=== PATIENT | female | born 1960 | race Caucasian/White ===

== ENCOUNTER 2016-11-01 21:50 | Emergency (ER) | payer BC ==
[~2016-11-01] VITALS: Ht 167.6 cm; Wt 59.0 kg
[2016-11-01] MEDS ORDERED: TDAP [DIPH/PERTUSSIS/TET] 0.5 ML VIAL IM ONE ×2 (22:29→22:30)
[2016-11-02 00:37] VITALS: BP 148/95
== END 2016-11-02 00:38 | disposition home or self-care (01) ==
LOC: ER 21:54
DX: S61.210A Laceration without foreign body of right index finger without damage to nail, initial encounter (principal); I10 Essential (primary) hypertension; Z95.5 Presence of coronary angioplasty implant and graft; Z98.82 Breast implant status; F17.200 Nicotine dependence, unspecified, uncomplicated; W54.0XXA Bitten by dog, initial encounter; Y93.89 Activity, other specified; Y92.89 Other specified places as the place of occurrence of the external cause; Y99.8 Other external cause status
CPT/HCPCS: 12001; 73130; 90471; 90715; 99284; A4217; A4606; A6402; Z7610

== ENCOUNTER 2022-04-05 11:33 | Inpatient (IN) | payer BC, OTHER ==
[2022-04-05] VITALS (8 sets, daily range): BP systolic 90–124; BP diastolic 36–62
[~2022-04-05] VITALS: Ht 165.1 cm; Wt 79.8 kg
[2022-04-05] MEDS ORDERED: IV NS 0.9% 1,000 ML IV ONE (12:00)
--- NOTE | 2022-04-05 12:00 | NUR ---
RECIVED PT CAME BY DARIN c/o genraized jandice and weekneess awake not fallow any comend
--- NOTE | 2022-04-05 12:22 | NUR ---
CARDIOLIGIST DR. ROBINSON ROSEN [phone]
--- NOTE | 2022-04-05 12:30 | NUR ---
to ct scan of head
[2022-04-05] MEDS ORDERED: CITA20TA16 PO (12:33)
[2022-04-05] MEDS ORDERED: OMEP20CA15 PO (12:33)
[2022-04-05] MEDS ORDERED: LEVO100T9 PO (12:33)
[2022-04-05] MEDS ORDERED: ALPR2TAB7 PO (12:33)
[2022-04-05] MEDS ORDERED: METO-357 PO (12:33)
[2022-04-05] MEDS ORDERED: ATOR40TA PO (12:33)
[2022-04-05 12:56] LABS: EOSINOPHILS % (AUTO) 0.4 % (0.0-6.0); LYMPHOCYTES # (AUTO) 0.6 K/uL (0.8-4.8); LYMPHOCYTES % (AUTO) 9.4 % (20.0-44.0); MEAN CORPUSCULAR HGB CONC 35 g/dl (31.0-36.0); MEAN CORPUSCULAR VOLUME 99 fL (82-100); MONOCYTES # (AUTO) 0.3 K/uL (0.1-1.30); MONOCYTES % (AUTO) 4.5 % (2.0-12.0); NEUTROPHILS % (AUTO) 85.7 % (43.0-81.0); PLATELET COUNT (AUTO) 106 K/uL (150-450); WHITE BLOOD COUNT (AUTO) 5.9 K/uL (4.3-11.0)
[2022-04-05 12:57] LABS: RED BLOOD CELL COUNT(AUTO) 1.28 MIL/uL (4.0-5.2)
[2022-04-05 13:00] LABS: HEMATOCRIT 13 % (33-45); HEMOGLOBIN 4.4 g/dL (11.5-14.8)
[2022-04-05 13:08] LABS: SERUM AMMONIA 33 umol/L (11-32)
[2022-04-05 13:14] LABS: ALANINE AMINOTRANSFERASE 52 U/L (12-78); ALBUMIN 2.1 g/dL (3.4-5.0); ALKALINE PHOSPHATASE 123 U/L (46-116); ASPARTATE AMINOTRANSFERASE 267 U/L (15-37); BILIRUBIN,DIRECT 5.1 mg/dL (0.0-0.2); BILIRUBIN,TOTAL 6.7 mg/dL (0.2-1.0); CALCIUM, SERUM 8.1 mg/dL (8.5-10.1); TOTAL PROTEIN, SERUM 6.2 g/dL (6.4-8.2); UREA NITROGEN, BLOOD 26 mg/dL (7-18)
[2022-04-05] MEDS ORDERED: POTASSIUM CHLORIDE 20 MEQ TAB.PRT.SR PO ONE ×2 (13:30→13:46)
[2022-04-05] MEDS ORDERED: POTASSIUM CHLORIDE 10 MEQ/50 ML PREMIXED IVPB FOR PERIPHERAL LINE IV ONE (13:30)
[2022-04-05] MEDS ORDERED: POTASSIUM CL. PREMIX PERIPHER. 50 ML ONE (13:31)
[2022-04-05 13:46] LABS: POTASSIUM 2.2 mmol/L (3.5-5.1); SODIUM SERUM 135 mmol/L (136-145)
[2022-04-05 13:47] LABS: ALCOHOL, BLOOD < 3 mg/dL (0-0); CARBON DIOXIDE 35 mmol/L (21-32); CHLORIDE 87 mmol/L (98-107); CREATININE 0.9 mg/dL (0.6-1.3); GLUCOSE 129 mg/dL (74-106)
--- NOTE | 2022-04-05 14:19 | NUR ---
pal trevizo done and sent to lab
--- NOTE | 2022-04-05 14:20 | NUR ---
to ct scan of abdomin
[2022-04-05 14:52] LABS: BAND % (MANUAL) 9 % (0.0-5.0); LYMPHOCYTES % (MANUAL) 9 % (16-48); MONOCYTES % (MANUAL) 2 % (0-11.0); NEUTROPHILS % (MANUAL) 80 (42-76)
--- NOTE | 2022-04-05 15:09 | NUR ---
GLENN AUGUSTE (MOTHER) [phone]
[2022-04-05] MEDS ORDERED: MORPHINE SULFATE INJ 2 MG/ML DISP.SYRIN IV PRN (15:30)
[2022-04-05] MEDS ORDERED: ONDANSETRON HCL/PF 4 MG/2 ML VIAL IVP PRN (15:30)
[2022-04-05] MEDS ORDERED: Z GUARD REMEDY 4 OZ OINT TP PRN (15:30)
--- NOTE | 2022-04-05 15:54 | NUR ---
ROOM 112-1
--- NOTE | 2022-04-05 16:09 | NUR ---
REPORT GIVEN TO NURSE MCKEON FOR MORENITA
[2022-04-05 16:30] LABS: COLOR,URINE DARK YELLOW (YELLOW); PROTEIN,URINE TRACE mg/dl (NEGATIVE); UGLUCOSE NEGATIVE (NEGATIVE)
[2022-04-05 16:31] LABS: BILIRUBIN,URINE LARGE (NEGATIVE); LEUKOCYTE ESTERASE ,URINE TRACE (NEGATIVE); NITRITE, URINE NEGATIVE (NEGATIVE)
--- NOTE | 2022-04-05 16:45 | NUR ---
[facility] RN NOTE PATIENT RECEIVED FROM ER WITH DX COLITIS AND ANEMIA UNDER CARE KODI DNP, ALERT WITH CONFUSION , ON TELE MONITOR ST 105 AT THIS TIME, LT FA HL INTACT AND FLUSHED WELL BED IN LOWEST AND LOCKED POSITION , ON RA NO SOB NOTED AT THIS TIME, BELONGING CHECKED BY SHASHANK PAYNE, HOSPITAL ORIENTATION DONE ,VS TAKEN WILL CONT TO MONITOR CLOSELY
[2022-04-05 16:53] LABS: RBC,URINE 0-2 /HPF (0-2)
[2022-04-05 16:54] LABS: BACTERIA,URINE Many /HPF (None Seen); SQUAMOUS EPITHELIAL CELL,UR Few /HPF (None Seen)
[2022-04-05] MEDS ORDERED: PIPERACILLIN /TAZOBACTAM 3.375 G in IV D5W 50 ML IV ONE (17:00)
[2022-04-05] MEDS: IV NS 0.9% 1,000 ML IV PRN (17:05)
--- NOTE | 2022-04-05 18:33 | NUR ---
[facility] RN NOTE 1 UNIT PRBC STARTED, NO ADVERSE REACTION NOTED, NOT IN DISTRESS
--- NOTE | 2022-04-05 19:30 | NUR ---
RECEIVED PATIENT FROM ONUR BAUTISTA FOR CONTINUATION OF CARE, PATIENT A/O TO SELF, BLOOD TRANSFUSION ONGOING AT SI TIME, NO S/S OF ANY ADVERSE REACTION NOTED, WILL CONTINUE TO MONITOR CLOSELY.
[2022-04-05] MEDS: PANTOPRAZOLE 40 MG VIAL IV SCH (21:10)
[2022-04-05 23:49] LABS: HEMOGLOBIN 6.1 g/dL (11.5-14.8)
[2022-04-06] VITALS (11 sets, daily range): BP systolic 82–133; BP diastolic 46–69
--- NOTE | 2022-04-06 00:15 | NUR ---
RECEIVED RESULTS FOR THE H&H AT THIS TIME AND REPORT TO DR DAIANA SANDOVAL, 6.10/19, AND REPLIED WITH ORDERS TO TRANSFUSE 1 UNIT PRBC AND 1 UNIT FFP, ORDERS NOTED AND CARRIED OUT.
[2022-04-06] MEDS: PIPERACILLIN /TAZOBACTAM 3.375 G in IV D5W 100 ML IV SCH ×3 (01:46→16:33)
--- NOTE | 2022-04-06 04:22 | NUR ---
BLOOD TRANSFUSION DONE, PATIENT WITH BODY TEMP A THIS TIME 101.0, INFORMED MD PATIENT DID NOT HAVE FEVER EARLIER, AND PER ADMITTING DR AVOID TO GIVE TYLENOL, AND PER MD TO GIVE TYLENOL 650 PO ONCE, ASKED MD IF MAY BE AN ALLERGIC REACTION TO BLOOD TRANSFUSION, AND HE ANSWERED "NO' AND ORDERED BENADRYL 50MG IVP JUST IN CASE, ORDERS NOTED AND CARRIED OUT.
[2022-04-06] MEDS ORDERED: diphenhydrAMINE HCL 50 MG/ML VIAL IV ONE (04:30)
[2022-04-06] MEDS: ACETAMINOPHEN 325 MG TABLET PO PRN (04:36)
--- NOTE | 2022-04-06 06:24 | NUR ---
RN CLOSING NOTE, PATIENT TIN BED A/O X2, WITH INTERMITTENT CONFUSION, AT RA, NO SOB/ACUTE DISTRESS NOTED, S/P 2 UNITS OF PRBC, AWAITING FOR LABS RESULTS FOR HG LEVEL, LAST 6.1 AND THE LAST UNIT OF BLOOD GIVEN AFTER THAT, STILL ONE UNIT OF FFP STILL PENDING, WILL ENDORSE TO ONCOMING NURSE TO FOLLOW UP WITH LAB, PATIENT WITH FEVER THIS MORNING, TYLENOL GIVEN ONCE, CONTINUE ON IVF, OTHERWISE NO SIGNIFICANT CHANGE IN CONDITION DURING THE NIGHT, BED LOCKED AN DIN LOWEST POSITION, S/R OF BED X2 UP, CALL LIGHT W/I REACH, WILL ENDORSE CONTINUITY OF CARE TO ONCOMING NURSE.
[2022-04-06 06:39] LABS: BASOPHILS % (AUTO) 0.1 % (0.0-2.0); EOSINOPHILS % (AUTO) 0.2 % (0.0-6.0); HEMATOCRIT 21 % (33-45); HEMOGLOBIN 7.2 g/dL (11.5-14.8); LYMPHOCYTES # (AUTO) 0.5 K/uL (0.8-4.8); LYMPHOCYTES % (AUTO) 7.8 % (20.0-44.0); MEAN CORPUSCULAR HGB CONC 35 g/dl (31.0-36.0); MEAN CORPUSCULAR VOLUME 96 fL (82-100); MONOCYTES # (AUTO) 0.2 K/uL (0.1-1.30); MONOCYTES % (AUTO) 3.8 % (2.0-12.0); NEUTROPHILS # (AUTO) 5.4 K/uL (1.8-8.9); NEUTROPHILS % (AUTO) 88.1 % (43.0-81.0); PLATELET COUNT (AUTO) 81 K/uL (150-450); WHITE BLOOD COUNT (AUTO) 6.1 K/uL (4.3-11.0)
--- NOTE | 2022-04-06 07:38 | NUR ---
RN OPENING NOTE, PATIENT IN BED A/O X2, WITH INTERMITTENT CONFUSION, AT RA, NO SOB/ACUTE DISTRESS NOTED, S/P 2 UNITS OF PRBC, AWAITING FOR LABS RESULTS FOR HG LEVEL,ONE UNIT OF FFP STILL PENDING, IV ACCESS ON ROB MIDLINE AND L FA 20G RUNNING NACL 0.9% AT 75MLS HR. SAFETY MEASURES IN PLACE BED LOCKED IN THE LOWEST POSITION, S/R OF BED X2 UP, CALL LIGHT W/I REACH.
[2022-04-06 08:09] LABS: CALCIUM, SERUM 7.9 mg/dL (8.5-10.1); CREATININE 1.1 mg/dL (0.6-1.3); MAGNESIUM 1.5 mg/dL (1.8-2.4)
[2022-04-06] MEDS: PANTOPRAZOLE 40 MG VIAL IV SCH ×2 (08:24→22:17)
[2022-04-06 08:25] LABS: THYROID STIMULATING HORMONE 12.93 uIU/mL (0.358-3.74)
[2022-04-06] MEDS: CITALOPRAM HYDROBROMIDE 20 MG TABLET PO SCH (08:25)
[2022-04-06] MEDS: LEVOTHYROXINE SODIUM 100 MCG TABLET PO SCH (08:25)
[2022-04-06] MEDS: METOPROLOL SUCCINATE 50 MG TAB.SR.24H PO SCH (08:26)
[2022-04-06 08:39] LABS: POTASSIUM 2.6 mmol/L (3.5-5.1)
[2022-04-06 09:30] LABS: BAND % (MANUAL) 1 % (0.0-5.0); LYMPHOCYTES % (MANUAL) 6 % (16-48); MONOCYTES % (MANUAL) 4 % (0-11.0); NEUTROPHILS % (MANUAL) 89 (42-76)
--- NOTE | 2022-04-06 10:00 | NUR ---
RN NOTE INFORMED PROVIDER KODI WILKINS REGARDING PATIENT CRITICAL POTASSIUM LEVEL, NO FURTHER ACTION GIVEN.
[2022-04-06] MEDS ORDERED: PHYTONADIONE INJ 10 MG/1 ML AMPUL SQ SCH (10:30)
--- NOTE | 2022-04-06 10:55 | NUR ---
WOUND CARE CONSULT: PT HAVING PROCEDURE AT THIS TIME. REVIEWED CHART, NURSING DOCUMENTATION AND PHOTOS WHICH INDICATE LEFT NECK AND SHOULDER OPEN BLISTERS, PRESENT ON ADMISSION. DR DANIEL NOTIFIED OF SURGICAL CONSULT REQUEST. DISCUSSED SKIN PROTECTION WITH NURSING STAFF. IN AGREEMENT WITH PLAN OF CARE.
[2022-04-06 12:35] LABS: ALBUMIN 2.1 g/dL (3.4-5.0); BILIRUBIN,DIRECT 5.3 mg/dL (0.0-0.2); BILIRUBIN,TOTAL 7.4 mg/dL (0.2-1.0); TOTAL PROTEIN, SERUM 6.1 g/dL (6.4-8.2)
[2022-04-06] MEDS: Magnesium 1GM/D5W 100ML PREMIX 100 ML IV SCH ×2 (13:45→15:01)
--- NOTE | 2022-04-06 15:44 | NUR ---
SS received consult for open blisters on left neck and shoulder, lives alone, and ETOH. SS attempted to interview pt. but she is alert and oriented x2, tend to be confused. SW made an APS for self-neglect. APS Intake #[id number]
[2022-04-06] MEDS ORDERED: Magnesium 1GM/D5W 100ML PREMIX 100 ML IV SCH (16:30)
[2022-04-06] MEDS: IV NS 0.9% 1,000 ML IV PRN (16:32)
[2022-04-06] MEDS: POTASSIUM CL. PREMIX PERIPHER. 50 ML IV SCH ×6 (16:43→23:14)
[2022-04-06] MEDS ORDERED: Sodium Phosphate 15 MMOL in IV NS 0.9% 245 ML IV SCH ×3 (17:00→22:00)
[2022-04-06 18:12] LABS: OCCULT BLOOD STOOL POSITIVE (NEGATIVE)
--- NOTE | 2022-04-06 18:56 | NUR ---
RN CLOSING NOTE, PATIENT TIN BED A/O X2, WITH INTERMITTENT CONFUSION, AT RA, NO SOB/ACUTE DISTRESS NOTED. IV ACCESS ON ROB MIDLINE AND LFA 20G NACL. CURRENTLY RUNNING POTASSIUM 3/4 BAGS COMPLETE. , BED LOCKED AN DIN LOWEST POSITION, S/R OF BED X2 UP, CALL LIGHT W/I REACH, WILL ENDORSE CONTINUITY OF CARE TO ONCOMING NURSE.
--- NOTE | 2022-04-06 19:30 | NUR ---
LAST PICKER OPENING NOTE RECEIVED PATIENT IN BED A/O X2, CONFUSED, ON RA TOLERATING WELL, NO SOB/ACUTE DISTRESS NOTED, WITH IV ACCESS ON ROB MIDLINE RUNNING KCL AT 50 ML/HR AND L FA 20G RUNNING NACL 0.9% AT 75MLS HR. SAFETY MEASURES IN PLACED, CALL LIGHT WITHIN REACH, BED IN LOWEST AND LOCKED POSITION, S/R OF BED X2 UP, WILL CONTINUE TO MONITOR THROUGHOUT THE SHIFT.
[2022-04-07] VITALS (11 sets, daily range): BP systolic 89–133; BP diastolic 50–68
[2022-04-07] MEDS: POTASSIUM CL. PREMIX PERIPHER. 50 ML IV SCH ×2 (00:06→01:38)
[2022-04-07] MEDS: PIPERACILLIN /TAZOBACTAM 3.375 G in IV D5W 100 ML IV SCH ×3 (01:38→16:04)
[2022-04-07 06:39] LABS: CALCIUM, SERUM 7.2 mg/dL (8.5-10.1); MAGNESIUM 1.6 mg/dL (1.8-2.4)
--- NOTE | 2022-04-07 07:20 | NUR ---
RN NOTE CRITICAL LAB VALUE OF HEMOGLOBIN 6.0 AND HEMATOCRIT 17 RECEIVED. LAB WILL REDRAW FOR CONFIRMATION.
--- NOTE | 2022-04-07 07:21 | NUR ---
RN NOTE PATIENT RECEIVED IN BED, AWAKE, A&OX2-3. PT ON RA WITH NO SIGNS OF LABORED BREATHING AT THIS TIME. FLEXISEAL IN PLACE. RIGHT UA MIDLINE IN PLACE RUNNING NS AT 75CC/HR. BED LOCKED AND IN LOWEST POSITION, CALL LIGHT WITHIN REACH, 3 SIDE RAILS UP.
[2022-04-07 07:23] LABS: POTASSIUM 2.4 mmol/L (3.5-5.1)
--- NOTE | 2022-04-07 07:26 | NUR ---
RN NOTE CRITICAL LAB VALUE OF POTASSIUM 2.4. CORDELL WILKINS NOTIFIED. ORDERED TO GIVE 40MEQ POTASSIUM PO X3 TODAY AT 0800, 1200 AND 1600. VERBAL ORDERED FOR 1 UNIT PRBC RECEIVED.
[2022-04-07 07:47] LABS: EOSINOPHILS % (AUTO) 0.3 % (0.0-6.0); LYMPHOCYTES # (AUTO) 0.8 K/uL (0.8-4.8); LYMPHOCYTES % (AUTO) 10.1 % (20.0-44.0); MEAN CORPUSCULAR HGB CONC 35 g/dl (31.0-36.0); MEAN CORPUSCULAR VOLUME 95 fL (82-100); MONOCYTES # (AUTO) 0.2 K/uL (0.1-1.30); MONOCYTES % (AUTO) 2.9 % (2.0-12.0); NEUTROPHILS # (AUTO) 7.2 K/uL (1.8-8.9); NEUTROPHILS % (AUTO) 86.7 % (43.0-81.0); PLATELET COUNT (AUTO) 60 K/uL (150-450); WHITE BLOOD COUNT (AUTO) 8.3 K/uL (4.3-11.0)
[2022-04-07] MEDS ORDERED: POTASSIUM CHLORIDE 20 MEQ TAB.PRT.SR PO ONE ×3 (08:00→16:00)
[2022-04-07 08:01] LABS: RED BLOOD CELL COUNT(AUTO) 1.82 MIL/uL (4.0-5.2)
[2022-04-07 08:02] LABS: HEMATOCRIT 17 % (33-45)
[2022-04-07 08:06] LABS: *ANA ANTI-CENTROMERE B AB <0.2 AI (0.0-0.9); *ANA ANTI-DNA(DS) AB, QN 1 IU/mL (0-9); *ANA ANTI-JO-1 <0.2 AI (0.0-0.9); *ANA ANTICHROMATIN ANTIBODY <0.2 AI (0.0-0.9); *ANA RNP ANTIBODIES 0.2 AI (0.0-0.9); *ANA SJOGREN'S ANTI-SS-A 0.9 AI (0.0-0.9); *ANA SJOGREN'S ANTI-SS-B <0.2 AI (0.0-0.9); *ANAANTI-SCLERODERMA-70 AB <0.2 AI (0.0-0.9); *ANASMITH AB <0.2 AI (0.0-0.9); IMMUNOGLOBULIN A, SERUM 382 mg/dL (87-352); IMMUNOGLOBULIN G, SERUM 1252 mg/dL (586-1602); IMMUNOGLOBULIN M, SERUM 73 mg/dL (26-217)
[2022-04-07] MEDS: PANTOPRAZOLE 40 MG VIAL IV SCH ×2 (08:09→20:18)
[2022-04-07] MEDS: LEVOTHYROXINE SODIUM 100 MCG TABLET PO SCH (08:09)
[2022-04-07] MEDS: CITALOPRAM HYDROBROMIDE 20 MG TABLET PO SCH (08:09)
[2022-04-07] MEDS: METOPROLOL SUCCINATE 50 MG TAB.SR.24H PO SCH (08:10)
[2022-04-07] MEDS ORDERED: Magnesium 1GM/D5W 100ML PREMIX 100 ML IV SCH (11:30)
[2022-04-07] MEDS ORDERED: MAGNESIUM OXIDE 400 MG TABLET PO ONE (12:00)
[2022-04-07] MEDS: ACETAMINOPHEN 325 MG TABLET PO PRN ×2 (13:45→20:19)
[2022-04-07 14:07] LABS: *SPE A/G RATIO 0.6 (0.7-1.7); *SPE ALPHA-1-GLOBULIN 0.3 g/dL (0.0-0.4); *SPE ALPHA-2-GLOBULIN 0.7 g/dL (0.4-1.0); *SPE BETA GLOBULIN 0.9 g/dL (0.7-1.3); *SPE M-SPIKE Not Observed g/dL (Not Observed)
--- NOTE | 2022-04-07 15:14 | NUR ---
RN NOTE BLOOD BANK CALLED REGARDING 1UNIT PRBC ORDERED THIS AM. BLOOD BANK STATE NOT KNOWING WHEN IT WILL BE READY.
--- NOTE | 2022-04-07 15:48 | NUR ---
RN NOTE BLOOD BANK CALLED AGAIN FOR PRBC THAT WAS ORDERED STAT THIS AM. BLOOD BANK STATE THEY ARE CURRENTLY WORKING ON IT AND WILL CALL WHEN THE UNIT IS READY SHORTLY.
[2022-04-07] MEDS: IV NS 0.9% 1,000 ML IV PRN (15:59)
[2022-04-07] MEDS: LACTULOSE 10 G/15 ML UDC (PYXIS) PO SCH (16:03)
--- NOTE | 2022-04-07 17:10 | NUR ---
RN NOTE BLOOD TRANSFUSION INITIATED, VITAL SIGNS STABLE. PT DOES NOT REPORT FEELING ANY ADVERSE EFFECT AT THIS TIME.
--- NOTE | 2022-04-07 19:00 | NUR ---
TD rn notes RECEIVED PATIENT IN BED A/O X2, CONFUSED, ON RA TOLERATING WELL, NO SOB/ACUTE DISTRESS NOTED, WITH IV ACCESS ON ROB MIDLINE RUNNING I UNIT OF PRBC AT 100CC/HR INFUSING WELL NO ASE NOTED . IVF NACL 0.9% AT 75MLS HR.ON HOLD AT THIS TIME D/T TO PRBC IS RUNNING . PTS ON FLEXISEAL DRAINING WELL , PTS IS C DIFF ON CONTACT ISOLATION PRECVAUTIONARY MEASURES OBSERVED , ALL DUE MEDS GIVEN ORDERED SAFETY MEASURES IN PLACED, CALL LIGHT WITHIN REACH, BED IN LOWEST AND LOCKED POSITION, S/R OF BED X2 UP, WILL CONTINUE TO MONITOR PTS.
[2022-04-07] MEDS: VANCOMYCIN HCL 125 MG/2.5 ML ORAL.SUSP PO SCH (20:18)
--- NOTE | 2022-04-07 22:39 | NUR ---
TD RN NOTES 1 UNIT OF PRBC COMPLETED AT 2012 HRS , NO ADVERSE SIDE EFFECT NOTED WILL CONTINUE TO MONITOR PTS.
[2022-04-08] VITALS: BP 112/80
[2022-04-08] MEDS: PIPERACILLIN /TAZOBACTAM 3.375 G in IV D5W 100 ML IV SCH (01:46)
[2022-04-08 04:00] VITALS: BP 110/80
[2022-04-08 07:13] LABS: CALCIUM, SERUM 7.9 mg/dL (8.5-10.1); CREATININE 0.9 mg/dL (0.6-1.3); MAGNESIUM 1.7 mg/dL (1.8-2.4)
--- NOTE | 2022-04-08 07:22 | NUR ---
kimberley rn notes pts remains in bed awake and responsive no orn the whole shift ,pts on r/a sating 96 % all needs attended too call light within reach .will endorse to rn day shift for continuity of care.
--- NOTE | 2022-04-08 07:30 | NUR ---
MAINTENANCE ASSISTANT OPENING NOTE RECEIVED PATIENT IN BED A/O X3, ON RA TOLERATING WELL, NO SO, NOT IN DISTRESS, WITH IV ACCESS ON ROB MIDLINE AND L FA 20G PATENT AND INFUSING WELL. SAFETY MEASURES IN PLACE, CALL LIGHT WITHIN REACH, BED LOCKED IN LOWEST POSITION, S/R UP X2, WILL CONTINUE TO MONITOR AND ATTEND TO PT NEEDS.
--- NOTE | 2022-04-08 07:31 | NUR ---
RN NOTE PT RECEIVED RESTING IN BED, AWAKE ALERT AND RESPONSIVE. IN ROOM AIR, NOT IN RESPI DISTRESS. ROB MIDLIN IN PLACE AND PATENT WITH IVF NS @75CC/HR RUNNING. SAFETY MEASURES FOLLOWED. WILL CONT TO MONITOR.
[2022-04-08 07:48] LABS: POTASSIUM 2.7 mmol/L (3.5-5.1)
[2022-04-08 07:52] LABS: BASOPHILS % (AUTO) 0.1 % (0.0-2.0); EOSINOPHILS % (AUTO) 2.4 % (0.0-6.0); HEMATOCRIT 25 % (33-45); HEMOGLOBIN 8.9 g/dL (11.5-14.8); LYMPHOCYTES # (AUTO) 1.1 K/uL (0.8-4.8); LYMPHOCYTES % (AUTO) 20.6 % (20.0-44.0); MEAN CORPUSCULAR HGB CONC 36 g/dl (31.0-36.0); MEAN CORPUSCULAR VOLUME 95 fL (82-100); MONOCYTES # (AUTO) 0.2 K/uL (0.1-1.30); MONOCYTES % (AUTO) 4.3 % (2.0-12.0); NEUTROPHILS # (AUTO) 3.8 K/uL (1.8-8.9); NEUTROPHILS % (AUTO) 72.6 % (43.0-81.0); RED BLOOD CELL COUNT(AUTO) 2.65 MIL/uL (4.0-5.2); WHITE BLOOD COUNT (AUTO) 5.3 K/uL (4.3-11.0)
[2022-04-08 08:00] VITALS: BP 97/64
[2022-04-08] MEDS ORDERED: POTASSIUM CHLORIDE 20 MEQ TAB.PRT.SR PO ONE ×2 (08:00→12:00)
[2022-04-08 08:18] LABS: PLATELET COUNT (AUTO) 40 K/uL (150-450)
--- NOTE | 2022-04-08 08:23 | NUR ---
t kimberley rn note platelets 40 at this time , laurita dnp notified no new order at this time
[2022-04-08] MEDS: LEVOTHYROXINE SODIUM 100 MCG TABLET PO SCH (08:37)
[2022-04-08] MEDS: PANTOPRAZOLE 40 MG VIAL IV SCH ×2 (08:37→20:58)
[2022-04-08] MEDS: LACTULOSE 10 G/15 ML UDC (PYXIS) PO SCH ×2 (08:37→17:29)
[2022-04-08] MEDS: METOPROLOL SUCCINATE 50 MG TAB.SR.24H PO SCH (08:38)
[2022-04-08] MEDS: CITALOPRAM HYDROBROMIDE 20 MG TABLET PO SCH (08:38)
[2022-04-08] MEDS: POTASSIUM CL. PREMIX PERIPHER. 50 ML IV SCH ×4 (08:40→13:25)
[2022-04-08] MEDS: Potassium Chloride 20 MEQ in IV D5/0.45 NACL 1,000 ML IV SCH ×2 (10:16→22:48)
[2022-04-08] MEDS: VANCOMYCIN HCL 125 MG/2.5 ML ORAL.SUSP PO SCH ×4 (10:18→20:58)
[2022-04-08] MEDS: Magnesium 1GM/D5W 100ML PREMIX 100 ML IV SCH ×2 (11:13→13:05)
[2022-04-08 12:00] VITALS: BP 97/64
[2022-04-08] MEDS ORDERED: POTASSIUM CL. PREMIX PERIPHER. 50 ML IV SCH (13:30)
[2022-04-08 16:00] VITALS: BP 97/60
--- NOTE | 2022-04-08 18:49 | NUR ---
RN CLOSING NOTE PATIENT IN BED A/O X3, ON RA TOLERATING WELL, NO SOB, NOT IN DISTRESS, WITH IV ACCESS ON ROB MIDLINE AND L FA 20G PATENT AND INFUSING WELL. SAFETY MEASURES IN PLACE, CALL LIGHT WITHIN REACH, BED LOCKED IN LOWEST POSITION, S/R UP X2, WILL ENDORSE TO NEXT NURSE ON DUTY FOR CONTINUITY OF CARE.
--- NOTE | 2022-04-08 19:30 | NUR ---
STONE SPLITTER OPENING NOTE RECEIVED PATIENT IN BED A/O X2, CONFUSED, ON RA , NO SOB/ACUTE DISTRESS NOTED, WITH IV ACCESS ON ROB MIDLINE RUNNING KCL AT 75ML/HR,FLEXISEAL IN PLACE, SAFETY MEASURES IN PLACED, CALL LIGHT WITHIN REACH, BED IN LOWEST AND LOCKED POSITION, S/R OF BED X2 UP, WILL CONTINUE TO MONITOR THROUGHOUT THE SHIFT. Addendum: 04/09/22 at 0217 by HITESH WEINER RN IV FLUID INFUSING D5 1/2NS WITH 20MEQ KCL
[2022-04-08 20:00] VITALS: BP 91/59
--- NOTE | 2022-04-08 22:00 | NUR ---
[facility] RN NOTE DURING ROUNDING PATIENT STATED SHE WAS COLD, WARMING BLANKET PROVIDED
[2022-04-09] VITALS: BP 123/79
[2022-04-09 04:00] VITALS: BP 117/72
--- NOTE | 2022-04-09 05:15 | NUR ---
[facility] RN NOTE FLEXISEAL BAG CHANGED 700 OUTPUT
--- NOTE | 2022-04-09 06:47 | NUR ---
SPEECH SCIENTIST NOTE PATIENT ASLEEP, EASILY AROUSABLE, NO DISTRESS OR DISCOMFORT NOTED, PATIENT DENIES PAIN, ON TELE MONITOR SR 76 WITH PVC, IV FLUIDS INFUSING WELL, NO S/S OF INFILTRATION, FLEXISEAL INTACT AND PATENT DRAINING LIQUIDY BROWN STOOL, SIDE RAILS UP X3, CALL LIGHT WITHIN REACH, WILL ENDORSE TO DAY SHIFT NURSE FOR CONTINUOUS CARE
[2022-04-09 06:52] LABS: BASOPHILS % (AUTO) 0.2 % (0.0-2.0); CALCIUM, SERUM 7.7 mg/dL (8.5-10.1); CREATININE 0.8 mg/dL (0.6-1.3); EOSINOPHILS % (AUTO) 2.2 % (0.0-6.0); HEMATOCRIT 26 % (33-45); HEMOGLOBIN 8.7 g/dL (11.5-14.8); LYMPHOCYTES # (AUTO) 1.4 K/uL (0.8-4.8); LYMPHOCYTES % (AUTO) 23.5 % (20.0-44.0); MEAN CORPUSCULAR HGB CONC 34 g/dl (31.0-36.0); MEAN CORPUSCULAR VOLUME 98 fL (82-100); MONOCYTES # (AUTO) 0.5 K/uL (0.1-1.30); MONOCYTES % (AUTO) 7.8 % (2.0-12.0); NEUTROPHILS # (AUTO) 4.1 K/uL (1.8-8.9); NEUTROPHILS % (AUTO) 66.3 % (43.0-81.0); POTASSIUM 3.5 mmol/L (3.5-5.1); RED BLOOD CELL COUNT(AUTO) 2.63 MIL/uL (4.0-5.2); WHITE BLOOD COUNT (AUTO) 6.1 K/uL (4.3-11.0)
[2022-04-09 06:59] LABS: PLATELET COUNT (AUTO) 33 K/uL (150-450)
[2022-04-09 08:00] VITALS: BP 94/66
[2022-04-09] MEDS: LEVOTHYROXINE SODIUM 100 MCG TABLET PO SCH (08:25)
[2022-04-09] MEDS: LACTULOSE 10 G/15 ML UDC (PYXIS) PO SCH ×2 (08:25→18:05)
[2022-04-09] MEDS: CITALOPRAM HYDROBROMIDE 20 MG TABLET PO SCH (08:25)
[2022-04-09] MEDS: VANCOMYCIN HCL 125 MG/2.5 ML ORAL.SUSP PO SCH ×4 (08:25→21:22)
[2022-04-09] MEDS: PANTOPRAZOLE 40 MG VIAL IV SCH ×3 (08:26→21:22)
[2022-04-09] MEDS: METOPROLOL SUCCINATE 50 MG TAB.SR.24H PO SCH (09:00)
[2022-04-09] MEDS: Potassium Chloride 20 MEQ in IV D5/0.45 NACL 1,000 ML IV SCH (11:19)
[2022-04-09 12:00] VITALS: BP 120/68
[2022-04-09 16:00] VITALS: BP 96/73
[2022-04-09] MEDS: ENSURE ENLIVE 237 ML LIQUID (VANILLA) PO SCH (18:06)
[2022-04-09 20:00] VITALS: BP 98/70
--- NOTE | 2022-04-09 20:00 | NUR ---
Received patient awake alert and oriented x3.VSS.SR.Respiration even and unlabored.IVF infusing. Denies pain or any discomfort.Safety precaution maintain.Call light at bedside.Continue to monitor.
[2022-04-09] MEDS ORDERED: PANTOPRAZOLE 40 MG/PACK PACK PO SCH (21:00)
--- NOTE | 2022-04-10 | NUR ---
Patient resting refused vital signs to be taken wants to sleep.
[2022-04-10] MEDS: Potassium Chloride 20 MEQ in IV D5/0.45 NACL 1,000 ML IV SCH ×2 (00:07→14:21)
[2022-04-10 04:00] VITALS: BP 103/58
--- NOTE | 2022-04-10 06:30 | NUR ---
END NOTE Patient incontinent of urine.Kept clean and dry.Diaper changed.Patient refused blood draw she said later.Patient verbalized can't breath.With O2 2LNC sating 94%.Repositioned to nv deana.RT at bedside talking to patient .Patient more relax and looks better.IVF infusing well. Will endorse to day shift for MORENITA.
[2022-04-10 08:00] VITALS: BP 97/72
[2022-04-10] MEDS: CITALOPRAM HYDROBROMIDE 20 MG TABLET PO SCH (08:42)
[2022-04-10] MEDS: LEVOTHYROXINE SODIUM 100 MCG TABLET PO SCH (08:42)
[2022-04-10] MEDS: PANTOPRAZOLE 40 MG VIAL IV SCH ×2 (08:43→20:57)
[2022-04-10] MEDS: LACTULOSE 10 G/15 ML UDC (PYXIS) PO SCH (08:47)
[2022-04-10] MEDS: METOPROLOL SUCCINATE 50 MG TAB.SR.24H PO SCH (08:47)
[2022-04-10] MEDS: VANCOMYCIN HCL 125 MG/2.5 ML ORAL.SUSP PO SCH ×4 (09:54→20:57)
[2022-04-10] MEDS: ENSURE ENLIVE 237 ML LIQUID (VANILLA) PO SCH ×2 (09:59→17:48)
--- NOTE | 2022-04-10 10:00 | NUR ---
telephone clerks supervisor NOTE PATIENT IS AWAKE, ALERT AND ORIENTED X3. PATIENT COMPLAINED OF DIFFICULTLY BREATHING. PATIENT IS ON 02 ON 2 L. TOLERATING WELL. PATIENT IS EASILY AROUSABLE. PATIENT REPORTS NO DISCOMFORT AT THIS TIME. PATENT IV. NO S/S INFILLFRATION.PATIENT HAS PURPLE RED BRUISES ON CHEST AND LEFT SHOULDER. HEAD OF BED IS ELEVATED. ALL SAFETY MEASURES IN PLACE. CALL LIGHT WITHIN REACH, BED LOCKED IN LOWEST POSITION, BEDSIDE TABLE WITHIN REACH. WILL CONTINUE TO ASSESS THROUGHOUT SHIFT
--- NOTE | 2022-04-10 10:03 | NUR ---
PATIENT REFUSED LACTULOSE
--- NOTE | 2022-04-10 10:49 | NUR ---
FAMILY AT BEDSIDE
[2022-04-10 11:17] LABS: BASOPHILS % (AUTO) 0.2 % (0.0-2.0); EOSINOPHILS % (AUTO) 1.4 % (0.0-6.0); HEMATOCRIT 24 % (33-45); HEMOGLOBIN 8.1 g/dL (11.5-14.8); LYMPHOCYTES # (AUTO) 1.4 K/uL (0.8-4.8); LYMPHOCYTES % (AUTO) 19.4 % (20.0-44.0); MEAN CORPUSCULAR HGB CONC 34 g/dl (31.0-36.0); MEAN CORPUSCULAR VOLUME 97 fL (82-100); MONOCYTES # (AUTO) 0.7 K/uL (0.1-1.30); MONOCYTES % (AUTO) 9.1 % (2.0-12.0); NEUTROPHILS # (AUTO) 5.2 K/uL (1.8-8.9); NEUTROPHILS % (AUTO) 69.9 % (43.0-81.0); RED BLOOD CELL COUNT(AUTO) 2.48 MIL/uL (4.0-5.2); WHITE BLOOD COUNT (AUTO) 7.4 K/uL (4.3-11.0)
[2022-04-10 11:19] LABS: PLATELET COUNT (AUTO) 29 K/uL (150-450)
[2022-04-10 11:31] LABS: CALCIUM, SERUM 7.7 mg/dL (8.5-10.1); CREATININE 0.9 mg/dL (0.6-1.3); POTASSIUM 3.3 mmol/L (3.5-5.1)
[2022-04-10 12:00] VITALS: BP 95/59
[2022-04-10] MEDS ORDERED: POTASSIUM CHLORIDE 20 MEQ POWDER PACKET PO SCH (12:00)
--- NOTE | 2022-04-10 12:02 | NUR ---
NOTIFIED DR. KODI WILKINS ABOUT PLT COUNT 29 Addendum: 04/10/22 at 1206 by THANIA DAVIDSON RN DR.NOEL WILKINS REPORTED NO NEW ORDER
--- NOTE | 2022-04-10 13:14 | NUR ---
FAMILY AT BEDSIDE
--- NOTE | 2022-04-10 15:52 | NUR ---
FAMILY/FRIEND AT BEDSIDE
[2022-04-10 16:00] VITALS: BP 98/65
[2022-04-10] MEDS ORDERED: MAG HYDROX/AL HYDROX/SIMETH 30 ML UDC PO PRN ×3 (18:00→18:18)
--- NOTE | 2022-04-10 18:00 | NUR ---
patient requesting medication for gas relief.notified Dr. Deangelo Wray Addendum: 04/10/22 at 1804 by THANIA DAVIDSON RN doctor ordered Maalox 30 cc/ml PO q8H PRN
--- NOTE | 2022-04-10 18:39 | NUR ---
BUSINESS OBJECTS DEVELOPER CLOSING NOTE PATIENT IS AWAKE, ALERT AND ORIENTED X3. PATIENT COMPLAINED OF DIFFICULTLY BREATHING IN THE MORNING.ELEVATED HEAD OF BED AND PATIENT ON 2 L NASAL CANNULA. BREATHING IMPROVED. PATIENT IS ON TELE MONITOR CURRENTLY RUNNING SINUS RHYTHM 76. PER MD ORDER FLEXISEAL HAS BEEN REMOVED. PATIENT ON DIAPER.KEPT CLEAN AND DRY. LAST BM 04/10 LIQUID STOOL. PATIENT HAS BRUISES ON CHEST AND LEFT UPPER ARM. PATIENT HAS RIGHT UPPER ARM MIDLINE. IV PATENT AND FLUSHES WELL. CURRENTLY RUNNING POTASSIUM CHLORIDE 20 MEQ IN IV D5 1/2 NS 1000 ML AT 75ML/HR.PATIENT HAS DECREASED APPETITE. ALL SAFETY MEASURES IN PLACE. BED LOCKED IN LOWEST POSITION, CALL LIGHT WITHIN REACH. BEDSIDE TABLE WITHIN REACH OF PATIENT.
[2022-04-10 20:00] VITALS: BP 99/74
--- NOTE | 2022-04-10 20:46 | NUR ---
book retailer Opening Note Pt received in bed, awake, watching TV, A&O x4, calm, cooperative. Pt on 2L NC with current O2sat of 96%; pt shows no s/s of resp distress, no SOB or cough, non-labored and equal breathing. Pt attached to external monitor SR HR of 73. ROB midline intact and patent with D5 1/2 NS KCl running at 75 ml/hr; midline intact and patent, flushes easily with no resistance. Pt reports of pain but informed pt that her SBP is in the 90s and morphine can cause her BP to drop; also informed pt that given her condition, Tylenol would not be safe to give either; pt accepted teaching well. Bed in lowest position, call light within reach, side rails up x3. Will continue to monitor throughout the night.
[2022-04-11] VITALS: BP 105/76
--- NOTE | 2022-04-11 00:19 | NUR ---
RN Note Nini (best friend): Vivi (goddaughter):
[2022-04-11] MEDS: Potassium Chloride 20 MEQ in IV D5/0.45 NACL 1,000 ML IV SCH ×2 (03:23→17:03)
[2022-04-11 04:00] VITALS: BP 96/60
[2022-04-11 06:26] LABS: CALCIUM, SERUM 7.4 mg/dL (8.5-10.1); CREATININE 0.7 mg/dL (0.6-1.3); POTASSIUM 3.7 mmol/L (3.5-5.1)
--- NOTE | 2022-04-11 06:51 | NUR ---
SPINNER TENDER CLOSING NOTE PT REMAINS IN BED, ASLEEP BUT EASILY AROUSABLE, A&O X4; SLEPT INTERMITTENTLY THROUGHOUT THE NIGHT. HAD A PERIOD OF AGITATION AT AROUND 0500 WHEN PT WAS REFUSING TO HAVE LABS DRAWN, BUT WAS STILL ABLE TO COMPLY AND ALLOWED ME TO DRAW LAB. ON 2L NC WITH O2SAT RANGING FROM 95%-96% WITH NO S/S OF RESP DISTRESS, NON-LABORED AND EQUAL BREATHING, NO SOB OR COUGH. ATTACHED TO EXTERNAL MONITOR SR, WITH HR RANGING FROM 69-74. PT REFUSED TO HAVE WOUND CARE DONE. ROB MIDLINE INTACT AND PATENT, HAS D5 1/2 NS KCL RUNNING AT 75 ML/HR. BED IN LOWEST POSITION, CALL LIGHT WITHIN REACH, SIDE RAILS UP X3. WILL ENDORSE TO DAYSHIFT NURSE TO CONTINUE CARE.
[2022-04-11 06:54] LABS: BASOPHILS % (AUTO) 0.3 % (0.0-2.0); EOSINOPHILS % (AUTO) 1.6 % (0.0-6.0); HEMATOCRIT 23 % (33-45); HEMOGLOBIN 7.7 g/dL (11.5-14.8); LYMPHOCYTES # (AUTO) 1.4 K/uL (0.8-4.8); LYMPHOCYTES % (AUTO) 18.8 % (20.0-44.0); MEAN CORPUSCULAR HGB CONC 34 g/dl (31.0-36.0); MEAN CORPUSCULAR VOLUME 97 fL (82-100); MONOCYTES # (AUTO) 0.6 K/uL (0.1-1.30); MONOCYTES % (AUTO) 8.1 % (2.0-12.0); NEUTROPHILS # (AUTO) 5.2 K/uL (1.8-8.9); NEUTROPHILS % (AUTO) 71.2 % (43.0-81.0); RED BLOOD CELL COUNT(AUTO) 2.32 MIL/uL (4.0-5.2); WHITE BLOOD COUNT (AUTO) 7.3 K/uL (4.3-11.0)
--- NOTE | 2022-04-11 07:36 | NUR ---
Pt received in bed, asleep. Pt on 2L NC with current O2sat of 96%; pt shows no s/s of resp distress, no SOB or cough, non-labored and equal breathing. Pt attached to external monitor SR HR of 70's. ROB midline intact and patent with D5 1/2 NS KCl running at 75 ml/hr; midline intact and patent. Bed in lowest position, call light within reach, side rails up x3. Will continue to monitor throughout the shift.
[2022-04-11] MEDS: LEVOTHYROXINE SODIUM 100 MCG TABLET PO SCH (07:58)
[2022-04-11] MEDS: ENSURE ENLIVE 237 ML LIQUID (VANILLA) PO SCH ×2 (07:58→17:02)
[2022-04-11 08:00] VITALS: BP 105/62
[2022-04-11 08:06] LABS: PLATELET COUNT (AUTO) 29 K/uL (150-450)
[2022-04-11] MEDS: PANTOPRAZOLE 40 MG VIAL IV SCH ×2 (08:17→21:45)
[2022-04-11] MEDS: CITALOPRAM HYDROBROMIDE 20 MG TABLET PO SCH (08:17)
[2022-04-11] MEDS: METOPROLOL SUCCINATE 50 MG TAB.SR.24H PO SCH (08:17)
[2022-04-11] MEDS: VANCOMYCIN HCL 125 MG/2.5 ML ORAL.SUSP PO SCH ×4 (08:20→21:45)
[2022-04-11 12:00] VITALS: BP 105/62
[2022-04-11 16:00] VITALS: BP 110/65
--- NOTE | 2022-04-11 17:22 | NUR ---
NO FLEXISEAL IN PLACE. Addendum: 04/11/22 at 1722 by APRYL PANDEY RN Amended: Links added.
--- NOTE | 2022-04-11 18:36 | NUR ---
RN CLOSING NOTE PT REMAINS IN BED, AWAKE, A&O X4; ON 2L NC WITH O2SAT RANGING FROM 95%-96% WITH NO S/S OF RESP DISTRESS, NON-LABORED AND EQUAL BREATHING, NO SOB OR COUGH. ATTACHED TO EXTERNAL MONITOR SR, WITH HR RANGING FROM 64-69. ROB MIDLINE INTACT AND PATENT, HAS D5 1/2 NS KCL INFUSING AT 75 ML/HR. BED IN LOWEST POSITION, CALL LIGHT WITHIN REACH, SIDE RAILS UP X3. WILL ENDORSE TO NEXT NURSE ON DUTY FOR CONTINUITY OF CARE.
--- NOTE | 2022-04-11 19:25 | NUR ---
RN OPENING NOTES RECEIVED PATIENT RESTING IN BED COMFORTABLY; A/OX4,BREATHING EVEN AND UNLABORED, NO DISTRESS NOTED; TOLERATING 2LPM VIA NC WELL; NO SOB NOTED; PATIENT ABLE TO MAKE NEEDS KNOWN; ISOLATION PRECAUTION IMPLEMENTED; TELE MONITOR READS SINUS RHYTHM 60S - 70S; ROB MIDLINE INTACT AND PATENT, FLUSHING WELL; TOLERATING IVF; SAFETY PRECAUTIONS IMPLEMENTED; BED LOCKED IN LOW POSITION; SIDE RAILSX2; CALL LIGHT WITHIN REACH; WILL CONT PLAN OF CARE
[2022-04-11 20:00] VITALS: BP 110/65
--- NOTE | 2022-04-11 22:32 | NUR ---
RN NOTES ENDORSED CONTINUITY OF CARE TO MICHELE LERMA;
[2022-04-12] VITALS: BP_SYST 100; BP_SYST 102; BP_DIAS 51; BP_DIAS 68
[2022-04-12 04:00] VITALS: BP_SYST 101; BP_SYST 110; BP_DIAS 53; BP_DIAS 74
[2022-04-12] MEDS: Potassium Chloride 20 MEQ in IV D5/0.45 NACL 1,000 ML IV SCH ×2 (05:52→20:04)
--- NOTE | 2022-04-12 06:21 | NUR ---
RN CLOSING NOTES PATIENT RESTING IN BED COMFORTABLY; A/OX4,BREATHING EVEN AND UNLABORED, NO DISTRESS NOTED; TOLERATING 2LPM VIA NC WELL; NO SOB NOTED; PATIENT ABLE TO MAKE NEEDS KNOWN; ISOLATION PRECAUTION IMPLEMENTED; TELE MONITOR READS SINUS RHYTHM ROB MIDLINE INTACT AND PATENT, FLUSHING WELL; TOLERATING IVF; SAFETY PRECAUTIONS IMPLEMENTED; BED LOCKED IN LOW POSITION; SIDE RAILSX2; CALL LIGHT WITHIN REACH; WILL ENDORSE CARE TO DAY SHIFT NURSE.
--- NOTE | 2022-04-12 07:34 | NUR ---
RN OPENING NOTES RECEIVED PATIENT ASLEEP COMFORTABLY; BREATHING EVEN AND UNLABORED, NO DISTRESS NOTED; TOLERATING 2LPM VIA NC WELL; NO SOB NOTED; ISOLATION PRECAUTION IMPLEMENTED; TELE MONITOR READS SINUS RHYTHM 60S - 70S; ROB MIDLINE INTACT AND PATENT, FLUSHING WELL; TOLERATING IVF; SAFETY PRECAUTIONS IMPLEMENTED; BED LOCKED IN LOW POSITION; SIDE RAILSX2; CALL LIGHT WITHIN REACH; WILL CONT PLAN OF CARE
[2022-04-12 07:35] LABS: BASOPHILS % (AUTO) 0.1 % (0.0-2.0); EOSINOPHILS % (AUTO) 1.1 % (0.0-6.0); HEMATOCRIT 26 % (33-45); HEMOGLOBIN 8.8 g/dL (11.5-14.8); LYMPHOCYTES # (AUTO) 1.1 K/uL (0.8-4.8); LYMPHOCYTES % (AUTO) 12.7 % (20.0-44.0); MEAN CORPUSCULAR HGB CONC 33 g/dl (31.0-36.0); MEAN CORPUSCULAR VOLUME 99 fL (82-100); MONOCYTES # (AUTO) 0.6 K/uL (0.1-1.30); MONOCYTES % (AUTO) 7.6 % (2.0-12.0); NEUTROPHILS # (AUTO) 6.7 K/uL (1.8-8.9); NEUTROPHILS % (AUTO) 78.5 % (43.0-81.0); PLATELET COUNT (AUTO) 52 K/uL (150-450); RED BLOOD CELL COUNT(AUTO) 2.67 MIL/uL (4.0-5.2); WHITE BLOOD COUNT (AUTO) 8.5 K/uL (4.3-11.0)
[2022-04-12] MEDS: LEVOTHYROXINE SODIUM 100 MCG TABLET PO SCH (07:53)
[2022-04-12] MEDS: ENSURE ENLIVE 237 ML LIQUID (VANILLA) PO SCH ×2 (07:54→17:34)
[2022-04-12 08:00] VITALS: BP 94/61
[2022-04-12] MEDS: PANTOPRAZOLE 40 MG VIAL IV SCH ×2 (09:31→21:26)
[2022-04-12] MEDS: VANCOMYCIN HCL 125 MG/2.5 ML ORAL.SUSP PO SCH ×4 (09:31→21:26)
[2022-04-12] MEDS: METOPROLOL SUCCINATE 50 MG TAB.SR.24H PO SCH (09:32)
[2022-04-12] MEDS: CITALOPRAM HYDROBROMIDE 20 MG TABLET PO SCH (09:32)
[2022-04-12 11:02] LABS: BAND % (MANUAL) 3 % (0.0-5.0); LYMPHOCYTES % (MANUAL) 10 % (16-48); NEUTROPHILS % (MANUAL) 82 (42-76)
[2022-04-12 11:03] LABS: EOSINOPHILS % (MANUAL) 3 % (0-4); MONOCYTES % (MANUAL) 2 % (0-11.0)
[2022-04-12 12:00] VITALS: BP 94/59
[2022-04-12 16:00] VITALS: BP 94/61
--- NOTE | 2022-04-12 18:42 | NUR ---
RN CLOSING NOTES PATIENT RESTING IN BED COMFORTABLY; A/OX4,BREATHING EVEN AND UNLABORED, NO DISTRESS NOTED; TOLERATING 2LPM VIA NC WELL; NO SOB NOTED; PATIENT ABLE TO MAKE NEEDS KNOWN; ISOLATION PRECAUTION IMPLEMENTED; NO BOWEL MOVEMENT DURING THE SHIFT. TELE MONITOR READS SINUS RHYTHM ROB MIDLINE INTACT AND PATENT, FLUSHING WELL; TOLERATING IVF; SAFETY PRECAUTIONS IMPLEMENTED; BED LOCKED IN LOW POSITION; SIDE RAILSX2; CALL LIGHT WITHIN REACH; WILL ENDORSE CARE TO NEXT NURSE ON DUTY FOR CONTINUITY OF CARE.
--- NOTE | 2022-04-12 19:30 | NUR ---
COMPUTER TAPE LIBRARIAN OPENING NOTE PATIENT AWAKE IN BED, ALERT/ORIENTED X 4, PT ABLE TO MAKE NEEDS KNOWN. PATIENT STABLE ON RA, NO S/S OF DISTRESS OR SOB NOTED, BREATHING EVEN AND UNLABORED. PATIENT ON EXTERNAL DISTILLERY MANAGER READING SINUS RHYTHM, HR: 62. ROB MIDLINE INTACT AND INFUSING D5 1/2 NS WITH KCL @ 75 ML/HR. SAFETY MEASURES IN PLACE: CALL LIGHT WITHIN REACH, SIDE RAILS UP X 2, BED LOCKED IN LOWEST POSITION, BED ALARM ON. WILL CONTINUE TO MONITOR PATIENT
[2022-04-12 20:00] VITALS: BP 103/69
[2022-04-13] VITALS: BP 100/68
[2022-04-13 04:00] VITALS: BP 110/74
--- NOTE | 2022-04-13 07:16 | NUR ---
2ND PRESSMAN CLOSING NOTE PATIENT SLEEPING IN BED, ALERT/ORIENTED X 4, PT ABLE TO MAKE NEEDS KNOWN. PATIENT STABLE ON RA, NO S/S OF DISTRESS OR SOB NOTED, BREATHING EVEN AND UNLABORED. PATIENT ON EXTERNAL REVENUE CYCLE ADMINISTRATOR READING SINUS RHYTHM, HR: 65. ROB MIDLINE INTACT AND INFUSING D5 1/2 NS WITH KCL @ 75 ML/HR. NO SIGNIFICANT CHANGES THROUGHOUT SHIFT, MEDICATIONS GIVEN ORDERED, PT NEEDS MET THROUGHOTU SHIFT. SAFETY MEASURES IN PLACE: CALL LIGHT WITHIN REACH, SIDE RAILS UP X 2, BED LOCKED IN LOWEST POSITION, BED ALARM ON. WILL ENDORSE TO DAY SHIFT NURSE FOR CONTINUITY OF CARE
--- NOTE | 2022-04-13 07:28 | NUR ---
SUPERCALENDER OPERATOR OPENING NOTE PATIENT AWAKE IN BED, ALERT/ORIENTED X 4, PT ABLE TO MAKE NEEDS KNOWN. PATIENT STABLE ON 2L NC, NO S/S OF DISTRESS OR SOB NOTED, BREATHING EVEN AND UNLABORED. PATIENT ON EXTERNAL SUPERINTENDENT SYSTEM OPERATION READING SINUS RHYTHM, HR: 70'S. ROB MIDLINE INTACT AND INFUSING D5 1/2 NS WITH KCL @ 75 ML/HR. SAFETY MEASURES IN PLACE: CALL LIGHT WITHIN REACH, SIDE RAILS UP X 2, BED LOCKED IN LOWEST POSITION, BED ALARM ON. WILL CONTINUE PLAN OF CARE.
[2022-04-13] MEDS: LEVOTHYROXINE SODIUM 100 MCG TABLET PO SCH ×2 (07:44→08:36)
[2022-04-13] MEDS: ENSURE ENLIVE 237 ML LIQUID (VANILLA) PO SCH ×2 (07:45→16:37)
[2022-04-13 08:00] VITALS: BP 101/70
[2022-04-13] MEDS ORDERED: VANC125C11 PO (08:18)
[2022-04-13] MEDS ORDERED: PANT40TA2 PO (08:18)
[2022-04-13] MEDS: METOPROLOL SUCCINATE 50 MG TAB.SR.24H PO SCH (08:36)
[2022-04-13] MEDS: CITALOPRAM HYDROBROMIDE 20 MG TABLET PO SCH (08:36)
[2022-04-13] MEDS: PANTOPRAZOLE 40 MG TABLET.DR PO SCH ×2 (08:36→20:38)
[2022-04-13] MEDS: VANCOMYCIN HCL 125 MG/2.5 ML ORAL.SUSP PO SCH ×4 (08:36→20:38)
[2022-04-13] MEDS: Potassium Chloride 20 MEQ in IV D5/0.45 NACL 1,000 ML IV SCH ×2 (09:53→22:52)
[2022-04-13 12:00] VITALS: BP 170/76
--- NOTE | 2022-04-13 14:14 | NUR ---
SS Note: ANTONIA made an [facility] report last week. Global President Geena from [facility] was able to meet with patient this past Monday [04/11]. Per Geena, she suggest to put in a psych consult for pt. ANTONIA notified nurse Ophelia from [facility] to put in a psych consult.
[2022-04-13 15:13] LABS: BASOPHILS % (AUTO) 0.2 % (0.0-2.0); EOSINOPHILS % (AUTO) 1.2 % (0.0-6.0); HEMATOCRIT 26 % (33-45); HEMOGLOBIN 8.8 g/dL (11.5-14.8); LYMPHOCYTES % (AUTO) 11.7 % (20.0-44.0); MEAN CORPUSCULAR HGB CONC 34 g/dl (31.0-36.0); MEAN CORPUSCULAR VOLUME 99 fL (82-100); MONOCYTES # (AUTO) 0.7 K/uL (0.1-1.30); NEUTROPHILS # (AUTO) 6.5 K/uL (1.8-8.9); NEUTROPHILS % (AUTO) 78.9 % (43.0-81.0); PLATELET COUNT (AUTO) 111 K/uL (150-450); RED BLOOD CELL COUNT(AUTO) 2.66 MIL/uL (4.0-5.2); WHITE BLOOD COUNT (AUTO) 8.2 K/uL (4.3-11.0)
[2022-04-13 16:00] VITALS: BP 170/76
--- NOTE | 2022-04-13 18:44 | NUR ---
SNOWBOARDER CLOSING NOTE PATIENT INTERMITTENTLY SLEEPING IN BED, ALERT/ORIENTED X 4, PT ABLE TO MAKE NEEDS KNOWN. PATIENT STABLE ON RA, NO S/S OF DISTRESS OR SOB NOTED, BREATHING EVEN AND UNLABORED. PATIENT ON EXTERNAL CARDING MACHINE FEEDER READING SINUS RHYTHM, HR: 70'S. ROB MIDLINE INTACT AND INFUSING D5 1/2 NS WITH KCL @ 75 ML/HR. MEDICATIONS GIVEN ORDERED, PT NEEDS MET THROUGHOTU SHIFT. SAFETY MEASURES IN PLACE: CALL LIGHT WITHIN REACH, SIDE RAILS UP X 2, BED LOCKED IN LOWEST POSITION, BED ALARM ON. WILL ENDORSE TO NEXT SHIFT NURSE FOR CONTINUITY OF CARE
--- NOTE | 2022-04-13 19:29 | NUR ---
RN OPENING NOTES RECEIVED PT IN BED, AWAKE, LAYING IN BED. AOx4, ABLE TO MAKE NEEDS KNOWN. ON NC 2LPM AND TOLERATING WELL. NO SOB NOTED. NO S/SX OF RESPIRATORY DISTRESS NOTED. TELE MONITOR DETECTS SINUS RHYTHM. IV ACCESS IN ROB MIDLINE RUNNING D5 1/2NS WITH POTASSIUM CHLORIDE # 75 ML/HR. SAFETY PRECAUTIONS IN PLACE: BED IN LOWEST, LOCKED POSITION, SIDERAILS UPx2, AND BRAKES ON. TABLE AND CALL LIGHT WITHIN REACH. WILL CONTINUE TO MONITOR.
[2022-04-13 20:00] VITALS: BP 108/70
[2022-04-14] VITALS: BP 106/72
[2022-04-14 04:00] VITALS: BP 121/83
[2022-04-14 06:33] LABS: BASOPHILS % (AUTO) 0.3 % (0.0-2.0); EOSINOPHILS % (AUTO) 1.3 % (0.0-6.0); HEMATOCRIT 26 % (33-45); HEMOGLOBIN 8.8 g/dL (11.5-14.8); LYMPHOCYTES # (AUTO) 0.9 K/uL (0.8-4.8); LYMPHOCYTES % (AUTO) 9.7 % (20.0-44.0); MEAN CORPUSCULAR HGB CONC 34 g/dl (31.0-36.0); MEAN CORPUSCULAR VOLUME 98 fL (82-100); MONOCYTES # (AUTO) 0.6 K/uL (0.1-1.30); MONOCYTES % (AUTO) 6.3 % (2.0-12.0); NEUTROPHILS # (AUTO) 7.3 K/uL (1.8-8.9); NEUTROPHILS % (AUTO) 82.4 % (43.0-81.0); PLATELET COUNT (AUTO) 155 K/uL (150-450); RED BLOOD CELL COUNT(AUTO) 2.63 MIL/uL (4.0-5.2); WHITE BLOOD COUNT (AUTO) 8.8 K/uL (4.3-11.0)
--- NOTE | 2022-04-14 06:48 | NUR ---
RN CLOSING NOTES PT IN BED, AWAKE, LAYING IN BED. AOx3-4, WITH PERIODS OF CONFUSION AND ABLE TO MAKE NEEDS KNOWN. ON NC 2LPM NEEDED AND TOLERATING WELL. NO SOB NOTED. NO S/SX OF RESPIRATORY DISTRESS NOTED. TELE MONITOR DETECTS SINUS RHYTHM. IV ACCESS IN ROB MIDLINE RUNNING D5 1/2NS WITH POTASSIUM CHLORIDE @ 75 ML/HR. ALL ORDERS CARRIED OUT. ALL NEEDS MET. PT KEPT CLEAN AND DRY. SAFETY PRECAUTIONS IN PLACE: BED IN LOWEST, LOCKED POSITION, SIDERAILS UPx2, AND BRAKES ON. TABLE AND CALL LIGHT WITHIN REACH. WILL ENDORSE TO ONCOMING SHIFT FOR MORENITA.
[2022-04-14 06:56] LABS: CALCIUM, SERUM 8.1 mg/dL (8.5-10.1); CREATININE 0.9 mg/dL (0.6-1.3); MAGNESIUM 1.4 mg/dL (1.8-2.4); PHOSPHORUS 3.1 mg/dL (2.5-4.9); POTASSIUM 3.1 mmol/L (3.5-5.1)
[2022-04-14 08:00] VITALS: BP 103/67
--- NOTE | 2022-04-14 08:00 | NUR ---
RN OPENING NOTE PATIENT RECEIVED IN BED, AO X 3- 4, ABLE TO RESPONDS ALL STIMULI. IN NO ACUTE DISTRESS NOTED. RESPIRATORY EVEN AND UNLABORED ON OXYGEN AT 2 Ls VIA NC. SKIN IS WARM TO TOUCH, KEEP CLEAN/DRY. KEPT ELEVATED HOB FOR ENSURE AIRWAY AND ASPIRATION PRECAUTION, ALSO LOWEST POSITION OF THE BED, S/R UP X 3, BED ALARM IS ON AT ALL THE TIMES. ALL SAFETY PRECAUTION APPLIED. CALL LIGHT WITHIN REACH, WILL CONTINUE TO MONITOR.
[2022-04-14] MEDS: METOPROLOL SUCCINATE 50 MG TAB.SR.24H PO SCH (09:00)
[2022-04-14] MEDS: POTASSIUM CHLORIDE 20 MEQ TAB.PRT.SR PO SCH (09:03)
[2022-04-14] MEDS: PANTOPRAZOLE 40 MG TABLET.DR PO SCH ×2 (09:03→21:44)
[2022-04-14] MEDS: VANCOMYCIN HCL 125 MG/2.5 ML ORAL.SUSP PO SCH ×4 (09:03→21:44)
[2022-04-14] MEDS: CITALOPRAM HYDROBROMIDE 20 MG TABLET PO SCH (09:03)
[2022-04-14] MEDS: ENSURE ENLIVE 237 ML LIQUID (VANILLA) PO SCH ×2 (09:38→16:49)
[2022-04-14] MEDS: Magnesium 1GM/D5W 100ML PREMIX 100 ML IV SCH ×4 (11:10→14:55)
[2022-04-14 12:00] VITALS: BP 135/67
[2022-04-14] MEDS: Potassium Chloride 20 MEQ in IV D5/0.45 NACL 1,000 ML IV SCH (12:39)
[2022-04-14 16:00] VITALS: BP 108/72
--- NOTE | 2022-04-14 17:24 | NUR ---
RN CLOSING NOTE PATIENT IN BED RESTING. IN NO ACUTE DISTRESS NOTED. RESPIRATORY EVEN AND UNLABORED ON OXYGEN AT 2 Ls VIA NC. SKIN IS WARM TO TOUCH, KEEP CLEAN/DRY. NO EPISODE OF LOOSE BM OBSERVED DURING DAY SHIFT. KEPT ELEVATED HOB FOR ENSURE AIRWAY AND ASPIRATION PRECAUTION, BED IN LOWEST POSITION AND LOCK. BED ALARM IS ON AT ALL THE TIMES. SAFETY MEASURED IN PLACED. CALL LIGHT WITHIN REACH, WILL ENDORSED TO NEXT SHIFT.
[2022-04-14 20:00] VITALS: BP 105/65
--- NOTE | 2022-04-14 20:00 | NUR ---
RN NOTE PT AWAKE, ALERT ORIENTED WITH SOME CONFUSION. NOT IN ANY DISTRESS. ON ROOM AIR SATING 96%. DENIES ANY PAIN. ROB ML PATENT AND INTACT, ON KCL 20MEQ IN D51/2NS RUNNING AT 75ML/HR. SR ON TELE MONITOR WITH HR OF 62. WILL CONTINUE TO MONITOR.
[2022-04-15] VITALS (21 sets, daily range): BP systolic 58–145; BP diastolic 24–96
[2022-04-15] MEDS: Potassium Chloride 20 MEQ in IV D5/0.45 NACL 1,000 ML IV SCH ×2 (02:57→14:36)
--- NOTE | 2022-04-15 06:46 | NUR ---
RN NOTE PT AWAKE. WITH EPISODES SOB, NO DISTRESS WERE NOTED. DENIES SOB AT THIS TIME. TOLERATES ROOM AIR. SR ON TELE MONITOR HR 72. CONTINUE WITH IVF KCL IN D51/2NS. INFUSING WELL. WILL ENDORSE TO NEXT SHIFT NURSE FOR MORENITA.
--- NOTE | 2022-04-15 07:23 | NUR ---
RN OPENING NOTES RECEIVED PT IN BED, PT IS A/O X 2 WITH SLIGHT CONFUSION. PT IS ON RA SATING AT 97%. TELE MONITOR SR 60-70'S. IV ACCESS AT ROB ML RUNNING D5 1/2 NS W/ 20 MEAKCL @ 75ML/HR. ALL SAFETY MEASURES IN PLACE. WILL CONT TO MONITOR THROUGHOUT SHIFT.
[2022-04-15] MEDS: CITALOPRAM HYDROBROMIDE 20 MG TABLET PO SCH (08:43)
[2022-04-15] MEDS: LEVOTHYROXINE SODIUM 100 MCG TABLET PO SCH (08:43)
[2022-04-15] MEDS: POTASSIUM CHLORIDE 20 MEQ TAB.PRT.SR PO SCH (08:43)
[2022-04-15] MEDS: ENSURE ENLIVE 237 ML LIQUID (VANILLA) PO SCH ×2 (08:44→16:09)
[2022-04-15] MEDS: PANTOPRAZOLE 40 MG TABLET.DR PO SCH ×2 (08:44→22:06)
[2022-04-15] MEDS: METOPROLOL SUCCINATE 50 MG TAB.SR.24H PO SCH (08:44)
[2022-04-15] MEDS: VANCOMYCIN HCL 125 MG/2.5 ML ORAL.SUSP PO SCH ×4 (08:45→21:58)
[2022-04-15 09:08] LABS: CALCIUM, SERUM 8.2 mg/dL (8.5-10.1); POTASSIUM 3.7 mmol/L (3.5-5.1)
[2022-04-15 09:20] LABS: ALBUMIN 1.7 g/dL (3.4-5.0); BILIRUBIN,TOTAL 2.1 mg/dL (0.2-1.0); TOTAL PROTEIN, SERUM 5.6 g/dL (6.4-8.2)
--- NOTE | 2022-04-15 19:10 | NUR ---
MS/RN OPENING NOTE RECIEVED PATIENT RESTING IN BED. CONFUSED AND LETHARGIC AT THIS TIME. ABLE TO ANSWER SIMPLE QUESTIONS. CONTINUES ON O2 5L VIA NC WITH NO S/SX OF RESPIRATORY DISTRESS NOTED. NO IV ACCESS AT THIS TIME. PER AM RN PATIENT PULLED OUT MIDLINE AND MD IS AWARE AND CHANGED ALL IV MED ORDERS TO PO. CONTINUES ON TELE MONITOR WITH READING SR. CALL LIGHT WITHIN REACH. ASPIRATION, FALL AND SAFETY PRECAUTIONS MAINTAINED.
--- NOTE | 2022-04-15 19:32 | NUR ---
RN CLOSING NOTES PT IN BED, PT IS A/O X 2 WITH SLIGHT CONFUSION. PT IS ON RA SATING AT 97%. TELE MONITOR SR 60-70'S. NO IV ACCESS ALL SAFETY MEASURES IN PLACE. WILL ENDORSE TO SPRIGGER RN
--- NOTE | 2022-04-15 20:00 | NUR ---
MS/RN NOT PATIENTS BP IS 64/46. PATIENT IS LETHARGIC AND CONFUSED. WILL ATTEMPT IV PLACEMENT. WILL NOTIFY IT ENGINEER MD AND GUARD CAPTAIN.
--- NOTE | 2022-04-15 20:05 | NUR ---
MS/RN NOTE CONTACTED AUTOMOTIVE ARTIST XENIA ROCHA WITH NEW ORDERS TO PLACE PIV STAT AND GIVE 1 UNIT NS BOLUS. Addendum: 04/15/22 at 2120 by PAWEL WEN RN MANUAL BP CHECKED. BP IS 58/30
--- NOTE | 2022-04-15 20:10 | NUR ---
MS/RN NOTE NEW ORDER FROM XENIA ROCHA TO TRANSFER PATIENT TO ICU.
--- NOTE | 2022-04-15 20:20 | NUR ---
MS/RN NOTE ICU GUN STOCK MAKER ED DOWN TO ATTEMPT IV PLACEMENT. IV SUCCESSFULLY PLACED TO RIGHT IJ #20G.
--- NOTE | 2022-04-15 20:30 | NUR ---
MS/RN NOTE 1L IV NS BOLUS INFUSING THROUGH RIGHT IJ IV LINE. BP RECHECK IS 65/45. PATIENT REMAINS CONFUSED BUT MORE AWAKE. WILL CHECK BLOOD SUGAR.
--- NOTE | 2022-04-15 20:35 | NUR ---
MS/RN NOTE BLOOD SUGAR IS 43. NOTIFIED MINE WEDGE SAWYER JOSEFINA WITH NEW ORDER TO ADMINISTER DEXTROSE 50 X 1.
[2022-04-15] MEDS ORDERED: DEXTROSE 50%-WATER 50 ML DISP.SYRIN ONE (20:38)
--- NOTE | 2022-04-15 20:45 | NUR ---
MS/RN NOTE GEOMETRY TEACHER CALLED WITH ICU BED 252. PROFESSOR OF ART WILL BE BINH.
--- NOTE | 2022-04-15 20:50 | NUR ---
INTEGRATION DIRECTOR NOTES RECEIVED PT [facility] ACCOMPANIED BY 2 UNIT STAFF. BEDSIDE REPORT GIVEN BY MICHELE GALE ALL PERTINENT PT INFO OBTAINED AND NOTED. PT IS A/OX1-2; ON ON VIA NC; NOT IN TOTAL RESPIRATORY DISTRESS. BP LOW <90 SBP, WILL START PRESSORS PER ORDERED. COMPREHENSIVE PHYSICAL ASSESSMENT; PICS TAKEN NEEDED AND PATIENT CARE DONE. CALL LIGHT WITHIN REACH, SAFETY MEASURES AND ISOLATION PRECAUTION IN PLACE, WILL CONTINUE MONITOR AND ASSESS THROUGHOUT THE SHIFT. WILL CARRY OUT MD ORDERS ACCORDINGLY. SUPERVISOR BILLPOSTING WELL AWARE.
--- NOTE | 2022-04-15 20:52 | NUR ---
MS/RN NOTE PATIENT TRANSFERRED TO ICU UNDER ACLS PROTOCOL. ALL BELONGINGS, CHART AND MEDS BROUGHT UP WITH PATIENT. REPORT GIVEN TO IMPLEMENTATION ENGINEERMICHELE PURCELL. Addendum: 04/15/22 at 2223 by PAWEL WEN RN BP AT TRANSFER IS 79/39
[2022-04-15] MEDS ORDERED: DEXTROSE 50%-WATER 50 ML DISP.SYRIN IVP ONE (21:00)
[2022-04-15] MEDS ORDERED: IV NS 0.9% 1,000 ML IV ONE (21:00)
[2022-04-15] MEDS ORDERED: NOREPINEPHRINE 32 MG in IV NS 0.9% 218 ML IV PRN (21:00)
[2022-04-15] MEDS ORDERED: NOREPINEPHRINE 8 MG in IV NS 0.9% 242 ML IV PRN (21:00)
--- NOTE | 2022-04-15 21:00 | NUR ---
MS/RN NOTE NOTIFIED PATIENTS CONTACT MATT TO UPDATE ON PATIENTS STATUS. MATT THANKFUL FOR UPDATE. PROVIDED ROOM NUMBER AND NEW UNIT OF PATIENT.
[2022-04-15 21:29] LABS: BASOPHILS % (AUTO) 0.3 % (0.0-2.0); EOSINOPHILS % (AUTO) 0.5 % (0.0-6.0); HEMATOCRIT 25 % (33-45); HEMOGLOBIN 8.1 g/dL (11.5-14.8); LYMPHOCYTES # (AUTO) 0.1 K/uL (0.8-4.8); LYMPHOCYTES % (AUTO) 4.1 % (20.0-44.0); MEAN CORPUSCULAR HGB CONC 33 g/dl (31.0-36.0); MEAN CORPUSCULAR VOLUME 101 fL (82-100); MONOCYTES % (AUTO) 0.4 % (2.0-12.0); NEUTROPHILS # (AUTO) 3.4 K/uL (1.8-8.9); NEUTROPHILS % (AUTO) 94.7 % (43.0-81.0); RED BLOOD CELL COUNT(AUTO) 2.44 MIL/uL (4.0-5.2); WHITE BLOOD COUNT (AUTO) 3.6 K/uL (4.3-11.0)
[2022-04-15] MEDS ORDERED: PHENYLEPHRINE 100 MG in IV NS 0.9% 240 ML IV PRN (21:30)
[2022-04-15 22:09] LABS: PLATELET COUNT (AUTO) 166 K/uL (150-450)
--- NOTE | 2022-04-15 22:45 | NUR ---
BARREL ROLLER OPERATOR NOTES BS RECHECKED 111MG/DL. RELATIONS LIAISON WELL AWARE. ONCMARIA DEL CARMEN HANKINS (LEV,XENIA) AWARE.
[2022-04-15 22:59] LABS: BAND % (MANUAL) 12 % (0.0-5.0); LYMPHOCYTES % (MANUAL) 5 % (16-48); MONOCYTES % (MANUAL) 7 % (0-11.0); NEUTROPHILS % (MANUAL) 76 (42-76)
[2022-04-15 23:14] LABS: ALBUMIN 1.6 g/dL (3.4-5.0); BILIRUBIN,TOTAL 2.4 mg/dL (0.2-1.0); CALCIUM, SERUM 7.7 mg/dL (8.5-10.1); CREATININE 1.4 mg/dL (0.6-1.3); POTASSIUM 3.8 mmol/L (3.5-5.1); TOTAL PROTEIN, SERUM 5.4 g/dL (6.4-8.2)
[2022-04-16] VITALS (94 sets, daily range): BP systolic 82–158; BP diastolic 32–93
--- NOTE | 2022-04-16 04:00 | NUR ---
RN NOTES PATIENT REMAINED TO BE IN NO SIGNS OF ACUTE RESPIRATORY DISTRESS , VITAL SIGNS STABLE AT THIS TIME. REGULAR TURNING AND REPOSITIONING DONE, WOUND CARE AND AM PATIENT CARE RENDERED WILL CONTINUE TO MONITOR AND REASSESS FOR ANY CHANGES THROUGHOUT THE SHIFT.
[2022-04-16 05:24] LABS: BASOPHILS % (AUTO) 0.1 % (0.0-2.0); HEMATOCRIT 25 % (33-45); HEMOGLOBIN 8.1 g/dL (11.5-14.8); LYMPHOCYTES # (AUTO) 0.3 K/uL (0.8-4.8); LYMPHOCYTES % (AUTO) 1.4 % (20.0-44.0); MEAN CORPUSCULAR HGB CONC 33 g/dl (31.0-36.0); MEAN CORPUSCULAR VOLUME 101 fL (82-100); MONOCYTES # (AUTO) 0.6 K/uL (0.1-1.30); MONOCYTES % (AUTO) 2.7 % (2.0-12.0); NEUTROPHILS # (AUTO) 22.6 K/uL (1.8-8.9); NEUTROPHILS % (AUTO) 95.8 % (43.0-81.0); PLATELET COUNT (AUTO) 239 K/uL (150-450); RED BLOOD CELL COUNT(AUTO) 2.47 MIL/uL (4.0-5.2); WHITE BLOOD COUNT (AUTO) 23.5 K/uL (4.3-11.0)
[2022-04-16 05:43] LABS: CALCIUM, SERUM 7.9 mg/dL (8.5-10.1); CREATININE 1.5 mg/dL (0.6-1.3); POTASSIUM 3.9 mmol/L (3.5-5.1)
[2022-04-16 06:09] LABS: BAND % (MANUAL) 9 % (0.0-5.0); BASOPHILS % (MANUAL) 0 % (0.0-2.0); EOSINOPHILS % (MANUAL) 0 % (0-4); LYMPHOCYTES % (MANUAL) 5 % (16-48); MONOCYTES % (MANUAL) 6 % (0-11.0); NEUTROPHILS % (MANUAL) 80 (42-76)
--- NOTE | 2022-04-16 06:26 | NUR ---
MANNEQUIN WIG MAKER CLOSING NOTE: PATIENT REMAINS IN ROOM IN NO SIGNS OF RESPIRATORY DISTRESS, PATIENT NOW ON 3L OF 02 VIA NC;TOLERATING WELL SATURATING @ >95% SP02. SAFETY MEASURES IMPLEMENTED, BED IN LOWEST POSITION, LOCKED, SIDE RAILS UP, CALL LIGHT WITHIN REACH. ALL NEEDS AND ORDERS ADDRESSED DURING THE SHIFT. IV ACCESS MAINTAINED INTACT, SECURED AND FLUSHING WELL. ALL DUE MEDS GIVEN ORDERED & SCHEDULED ; PATIENT TOLERATED WELL. STILL WITH ONGOING DRIP OF LEVO @0.2MCG/KG/MIN RUNNING AND MONITORED PER PROTOCOL. PATIENT KEPT CLEAN AND COMFORTABLE WITHIN THE SHIFT. PATIENT ENDORSED TO INCOMING SHIFT RN WITH STABLE VITAL SIGN AND FOR CONTINUITY OF CARE.
--- NOTE | 2022-04-16 07:30 | NUR ---
OPENING NOTE: REPORT RECEIVED FROM BINH BAUTISTA. LABS AND ORDERS REVIEWED DURING REPORT. PT IS ON LEVOPHED GTT AT 0.2 MCG/KG/MIN. PT HAS 1 IV SITE RIGHT EJ. PENDING MIDLINE PLACEMENT. PT CHECKED ON HOURLY AND PRN BY NURSING STAFF.
[2022-04-16] MEDS: ENSURE ENLIVE 237 ML LIQUID (VANILLA) PO SCH ×2 (08:00→13:16)
[2022-04-16] MEDS: VANCOMYCIN HCL 125 MG/2.5 ML ORAL.SUSP PO SCH ×4 (08:27→21:19)
[2022-04-16] MEDS: VANCOMYCIN 1.25 GM in IV D5W 250 ML IV SCH (08:27)
[2022-04-16 08:41] LABS: BASOPHILS % (AUTO) 0.1 % (0.0-2.0); HEMATOCRIT 25 % (33-45); HEMOGLOBIN 8.2 g/dL (11.5-14.8); LYMPHOCYTES # (AUTO) 0.4 K/uL (0.8-4.8); LYMPHOCYTES % (AUTO) 1.4 % (20.0-44.0); MEAN CORPUSCULAR HGB CONC 32 g/dl (31.0-36.0); MEAN CORPUSCULAR VOLUME 101 fL (82-100); MONOCYTES % (AUTO) 3.4 % (2.0-12.0); NEUTROPHILS # (AUTO) 26.6 K/uL (1.8-8.9); NEUTROPHILS % (AUTO) 95.1 % (43.0-81.0); PLATELET COUNT (AUTO) 252 K/uL (150-450); RED BLOOD CELL COUNT(AUTO) 2.53 MIL/uL (4.0-5.2)
[2022-04-16 08:51] LABS: CALCIUM, SERUM 8.3 mg/dL (8.5-10.1); CARBON DIOXIDE 16 mmol/L (21-32); CHLORIDE 104 mmol/L (98-107); CREATININE 1.4 mg/dL (0.6-1.3); GLUCOSE 92 mg/dL (74-106); POTASSIUM 4.2 mmol/L (3.5-5.1); SODIUM SERUM 135 mmol/L (136-145); UREA NITROGEN, BLOOD 9 mg/dL (7-18)
[2022-04-16 08:55] LABS: ALANINE AMINOTRANSFERASE 45 U/L (12-78); ALBUMIN 1.9 g/dL (3.4-5.0); ALKALINE PHOSPHATASE 173 U/L (46-116); ASPARTATE AMINOTRANSFERASE 149 U/L (15-37); BILIRUBIN,TOTAL 3.1 mg/dL (0.2-1.0); TOTAL PROTEIN, SERUM 6.7 g/dL (6.4-8.2)
[2022-04-16] MEDS: IV NS 0.9% 250 ML IV PRN (08:55)
[2022-04-16 09:00] LABS: D-DIMER 13.92 mg/L(FEU (0.17-0.50)
[2022-04-16] MEDS: METOPROLOL SUCCINATE 50 MG TAB.SR.24H PO SCH (09:00)
[2022-04-16] MEDS: POTASSIUM CHLORIDE 20 MEQ TAB.PRT.SR PO SCH (09:33)
[2022-04-16] MEDS: CITALOPRAM HYDROBROMIDE 20 MG TABLET PO SCH (09:33)
[2022-04-16] MEDS: PANTOPRAZOLE 40 MG TABLET.DR PO SCH ×2 (09:33→21:19)
[2022-04-16] MEDS: LEVOTHYROXINE SODIUM 100 MCG TABLET PO SCH (09:34)
[2022-04-16] MEDS: MEROPENEM 1 G in IV NS 0.9% 100 ML IV SCH ×2 (09:45→21:19)
--- NOTE | 2022-04-16 10:15 | NUR ---
DR LUCAS NOTIFIED OF LACTIC ACID RESULTS OF 6.8
[2022-04-16] MEDS ORDERED: IV NS 0.9% 1,000 ML IV ONE (11:00)
[2022-04-16] MEDS: ALBUMIN 25% 25 GM in PREMIX 1 EA IV SCH ×2 (12:11→23:06)
[2022-04-16] MEDS: IV NS 0.9% 1,000 ML IV SCH ×2 (13:21→21:19)
[2022-04-16] MEDS ORDERED: DOSE PER PHARMACY MICAFUNGIN 1 EA XX PRN (16:00)
[2022-04-16] MEDS: METRONIDAZOLE 500MG/ NS 100ML 500 MG in PREMIX 1 EA IV SCH ×2 (17:24→21:19)
--- NOTE | 2022-04-16 18:54 | NUR ---
END OF SHIFT NOTE: AT ABOUT 1330 PT STARTED WAKING UP MORE, BECOMING MORE AWARE OF SURROUNDING, BUT STILL CONFUSED. ALL STAT MEDS WERE GIVEN IN ORDER MD WANTED THEM GIVEN FOR SEPSIS. UA SENT TO LAB PER MD ORDERS. ULTRASOUND AND MIDLINE PLACEMENT DONE PER MD ORDERS. PT CHECKED ON HOURLY AND PRN BY NURSING STAFF.
[2022-04-16] MEDS: MICAFUNGIN SODIUM 100 MG in IV NS 0.9% 100 ML IV SCH (19:07)
[2022-04-16] MEDS: NOREPINEPHRINE 32 MG in IV NS 0.9% 218 ML IV PRN (19:07)
--- NOTE | 2022-04-16 19:31 | NUR ---
RN NOTES RECEIVED CARE OF PATIENT FROM AM NURSE, PATIENT SLEEPING, WAKES UP TO NAME, CONFUSED, IN NO APPARENT DISTRESS AT THIS TIME. PATIENT ON O2 THERAPY VIA NC AT 3L/MIN, NO SOB NOTED, O2 SAT 95%. NOTED WITH NICHOLAS CATH, PATENT, DRAINING YELLOW URINE TO GRAVITY. IV ACCESS ON REJ #20 AND ROB MIDLINE INFUSING LEVO DRIP AT 0.08 MCG/KG/MIN, IV NS AT 100 ML/HR, AND MYCAMINE 100 MG AT 100 ML/HR. SAFETY MEASURES IMPLEMENTED PER HOSPITAL PROTOCOLS. WILL CONTINUE TO MONITOR PATIENT.
[2022-04-16 21:01] LABS: BILIRUBIN,URINE NEGATIVE (NEGATIVE); COLOR,URINE YELLOW (YELLOW); LEUKOCYTE ESTERASE ,URINE NEGATIVE (NEGATIVE); NITRITE, URINE NEGATIVE (NEGATIVE); PROTEIN,URINE NEGATIVE (NEGATIVE); UGLUCOSE NEGATIVE (NEGATIVE); UROBILINOGEN,URINE 0.2 EU/dL (0.2)
[2022-04-16 21:05] LABS: BACTERIA,URINE Moderate /HPF (None Seen); HYALINE CASTS, URINE Few /LPF (None Seen); MUCUS,URINE Few /LPF (None Seen); SQUAMOUS EPITHELIAL CELL,UR Few /HPF (None Seen); WBC,URINE 21-50 /HPF (0-3)
[2022-04-16 21:10] LABS: CREATININE, URINE 34.7 MG/DL (30.0-125.0)
[2022-04-17] VITALS (93 sets, daily range): BP systolic 90–129; BP diastolic 29–87
[2022-04-17 04:37] LABS: BASOPHILS % (AUTO) 0.1 % (0.0-2.0); EOSINOPHILS % (AUTO) 0.6 % (0.0-6.0); LYMPHOCYTES # (AUTO) 0.6 K/uL (0.8-4.8); LYMPHOCYTES % (AUTO) 4.1 % (20.0-44.0); MEAN CORPUSCULAR HGB CONC 32 g/dl (31.0-36.0); MEAN CORPUSCULAR VOLUME 101 fL (82-100); MONOCYTES # (AUTO) 0.8 K/uL (0.1-1.30); MONOCYTES % (AUTO) 5.6 % (2.0-12.0); NEUTROPHILS % (AUTO) 89.6 % (43.0-81.0); PLATELET COUNT (AUTO) 138 K/uL (150-450); WHITE BLOOD COUNT (AUTO) 14.5 K/uL (4.3-11.0)
[2022-04-17 04:46] LABS: CREATININE 1.1 mg/dL (0.6-1.3)
[2022-04-17 04:51] LABS: ALBUMIN 2.3 g/dL (3.4-5.0); BILIRUBIN,TOTAL 2.3 mg/dL (0.2-1.0); TOTAL PROTEIN, SERUM 5.9 g/dL (6.4-8.2)
[2022-04-17 05:15] LABS: RED BLOOD CELL COUNT(AUTO) 1.99 MIL/uL (4.0-5.2)
[2022-04-17 05:16] LABS: HEMATOCRIT 20 % (33-45); HEMOGLOBIN 6.4 g/dL (11.5-14.8)
[2022-04-17] MEDS: METRONIDAZOLE 500MG/ NS 100ML 500 MG in PREMIX 1 EA IV SCH ×3 (05:16→20:54)
--- NOTE | 2022-04-17 07:20 | NUR ---
RN NOTES ENDORSED CARE OF PATIENT TO AM NURSE. NO CHANGES TO PATIENT'S CONDITION THROUGHOUT SHIFT. ALL DUE MEDS, ALL NEEDS ANTICIPATED AND MET. PATIENT OFF LEVO DRIP, BLOOD PRESSURES WNL. CRITICAL LAB VALUE REPORTED FOR HGB OF 6.4, DR TIRE SPOTTER MADE AWARE, ORDERED 1 UNIT PRBC. SAFETY MEASURES IMPLEMENTED. ENDORSED TO AM NURSE FOR MORENITA.
[2022-04-17] MEDS: IV NS 0.9% 1,000 ML IV SCH ×2 (07:49→17:48)
[2022-04-17] MEDS: ENSURE ENLIVE 237 ML LIQUID (VANILLA) PO SCH ×2 (08:00→17:00)
[2022-04-17] MEDS: LEVOTHYROXINE SODIUM 100 MCG TABLET PO SCH (08:09)
[2022-04-17 08:11] LABS: LYMPHOCYTES % (MANUAL) 6 % (16-48); MONOCYTES % (MANUAL) 6 % (0-11.0); NEUTROPHILS % (MANUAL) 88 (42-76)
[2022-04-17] MEDS: VANCOMYCIN 1.25 GM in IV D5W 250 ML IV SCH (08:13)
[2022-04-17] MEDS: IV NS 0.9% 250 ML IV PRN (08:15)
[2022-04-17] MEDS: PANTOPRAZOLE 40 MG VIAL IV SCH ×2 (08:55→17:50)
[2022-04-17] MEDS: CITALOPRAM HYDROBROMIDE 20 MG TABLET PO SCH (08:55)
[2022-04-17] MEDS: POTASSIUM CHLORIDE 20 MEQ TAB.PRT.SR PO SCH (08:55)
[2022-04-17] MEDS: VANCOMYCIN HCL 125 MG/2.5 ML ORAL.SUSP PO SCH ×3 (08:56→17:43)
[2022-04-17] MEDS: METOPROLOL SUCCINATE 50 MG TAB.SR.24H PO SCH (08:58)
[2022-04-17] MEDS ORDERED: OCTREOTIDE 500 MCG in IV NS 0.9% 99 ML IV PRN (09:00)
[2022-04-17] MEDS: MEROPENEM 1 G in IV NS 0.9% 100 ML IV SCH ×2 (09:24→21:49)
[2022-04-17 09:25] LABS: HEMOGLOBIN 6.6 g/dL (11.5-14.8)
--- NOTE | 2022-04-17 09:45 | NUR ---
dr. zuleta seen pt and made aware of the hgb=6.6 now.
[2022-04-17] MEDS: ALBUMIN 25% 25 GM in PREMIX 1 EA IV SCH ×3 (11:38→23:12)
--- NOTE | 2022-04-17 19:05 | NUR ---
RN OPENING NOTES RECEIVED PATIENT ON BED, AWAKE, CONFUSED. ON NASAL CANULA @3LPM SATING AT 93%. RESPIRATORY EVEN AND UNLABORED, NO SOB NOTED. AFEBRILE, NO S/S OF DISTRESS NOTED. PATIENT ROB MID LINE, RIGHT EJ # 22 , FLUSHED WITH NS, NO S/S OF INFILTRATION NOTED AT SITE. WITH IVF NS @ 100ML/HR. NICHOLAS CATHETER DRAINING WITH CLEAR YELLOW URINE OUTPUT VIA GRAVITY. ON BILATERAL WRIST RESTRAINT, REASSESSED Q2HRS. ALL SAFETY MEASURE PROVIDED. BED IN LOWEST POSITION, LOCKED. BED ALARM ARMED. CONTINUE TO MONITOR.
[2022-04-17] MEDS: MICAFUNGIN SODIUM 100 MG in IV NS 0.9% 100 ML IV SCH (19:14)
[2022-04-17 20:03] LABS: HEMOGLOBIN 9.2 g/dL (11.5-14.8)
[2022-04-18] VITALS (85 sets, daily range): BP systolic 79–133; BP diastolic 33–83
[2022-04-18 02:11] LABS: HEMOGLOBIN 9.2 g/dL (11.5-14.8)
[2022-04-18] MEDS: IV NS 0.9% 1,000 ML IV SCH (02:55)
[2022-04-18 05:11] LABS: BASOPHILS # (AUTO) 0.1 K/uL (0.0-0.2); BASOPHILS % (AUTO) 0.6 % (0.0-2.0); EOSINOPHILS % (AUTO) 0.6 % (0.0-6.0); HEMATOCRIT 27 % (33-45); HEMOGLOBIN 8.9 g/dL (11.5-14.8); LYMPHOCYTES # (AUTO) 0.6 K/uL (0.8-4.8); LYMPHOCYTES % (AUTO) 5.5 % (20.0-44.0); MEAN CORPUSCULAR HGB CONC 33 g/dl (31.0-36.0); MEAN CORPUSCULAR VOLUME 99 fL (82-100); MONOCYTES # (AUTO) 0.9 K/uL (0.1-1.30); NEUTROPHILS # (AUTO) 9.3 K/uL (1.8-8.9); NEUTROPHILS % (AUTO) 85.3 % (43.0-81.0); PLATELET COUNT (AUTO) 124 K/uL (150-450); RED BLOOD CELL COUNT(AUTO) 2.73 MIL/uL (4.0-5.2); WHITE BLOOD COUNT (AUTO) 10.8 K/uL (4.3-11.0)
[2022-04-18] MEDS: METRONIDAZOLE 500MG/ NS 100ML 500 MG in PREMIX 1 EA IV SCH ×3 (05:15→21:42)
[2022-04-18 05:28] LABS: CALCIUM, SERUM 8.1 mg/dL (8.5-10.1); CREATININE 0.9 mg/dL (0.6-1.3); POTASSIUM 4.9 mmol/L (3.5-5.1)
[2022-04-18 05:40] LABS: ALBUMIN 3.3 g/dL (3.4-5.0); BILIRUBIN,TOTAL 2.6 mg/dL (0.2-1.0); TOTAL PROTEIN, SERUM 6.7 g/dL (6.4-8.2)
[2022-04-18] MEDS: ALBUMIN 25% 25 GM in PREMIX 1 EA IV SCH ×4 (05:40→23:37)
--- NOTE | 2022-04-18 06:14 | NUR ---
RN NOTES NOTIFIED CORDELL ROCHA REGARDING CRITICAL LAB RESULT PROCALCITONIN- 19.39, NO NEW ORDER AT THIS TIME.
--- NOTE | 2022-04-18 07:00 | NUR ---
RN NOTES RECEIVED PT ON BED ,DRAWZY, FOLLOWS SIMPLE COMMAND, NONVERBAL , ON3L O2 N/C , O2 SAT WNL, NO RESPIRATORY DISTRESS NOTED, ON TELE SR HR IN 90'S , NICHOLAS DRAINING TO GRAVITY, PT IS NPO, IV SITES , CLEAN, DRY AND INTACT, NS AT 100CC/HR RUNNING , SR UP x3, CALL LIGHT WITHIN EASY REACH, BED LOCKED AND IN LOWEST POSITION, CONTINUE TO MONITOR .
[2022-04-18] MEDS: LEVOTHYROXINE SODIUM 100 MCG TABLET PO SCH ×2 (07:30→08:12)
[2022-04-18] MEDS: ENSURE ENLIVE 237 ML LIQUID (VANILLA) PO SCH ×2 (08:00→16:32)
[2022-04-18] MEDS: PANTOPRAZOLE 40 MG VIAL IV SCH ×2 (08:12→16:39)
[2022-04-18] MEDS: CITALOPRAM HYDROBROMIDE 20 MG TABLET PO SCH ×2 (08:12→08:36)
[2022-04-18] MEDS: VANCOMYCIN HCL 0.75 GM in IV D5W 250 ML IV SCH ×2 (08:14→19:48)
[2022-04-18] MEDS: POTASSIUM CHLORIDE 20 MEQ POWDER PACKET GT SCH (08:36)
--- NOTE | 2022-04-18 08:36 | NUR ---
RN NOTES PT IS LETHARGIC , HIGH RISK FOR ASPIRATION , PO MEDS HELD, MD NOTIFED
[2022-04-18] MEDS: METOPROLOL SUCCINATE 50 MG TAB.SR.24H PO SCH (08:40)
[2022-04-18] MEDS: NOREPINEPHRINE 32 MG in IV NS 0.9% 218 ML IV PRN (08:48)
[2022-04-18 09:21] LABS: D-DIMER 4.45 mg/L(FEU (0.17-0.50)
[2022-04-18] MEDS ORDERED: IV NS 0.9% 500 ML IV ONE (09:30)
[2022-04-18] MEDS: MEROPENEM 1 G in IV NS 0.9% 100 ML IV SCH ×2 (09:35→20:51)
--- NOTE | 2022-04-18 10:00 | NUR ---
RN NOTES DR ESTRADA NOTIFIED REGARDING ABG RESULTS .
--- NOTE | 2022-04-18 11:00 | NUR ---
RN NOTES DR DENG NOTIFIED REGARDING BLOOD CULTURE RESULTS .
[2022-04-18 12:15] LABS: ABG BASE EXCESS -12.1 mmol/L; ABG OXYGEN SATURATION 99.2 % (92.0-98.5); ABG PCO2 49.6 mmHg (35.0-45.0); ABG PH 7.136 (7.350-7.450); ABG PO2 231.4 mmHg (75.0-100.0); COHb 0.3 % (0.5-1.5); MetHb 1.2 % (0.0-1.5); O2Hb 97.7 % (94.0-97.0); SITE, ABG Right Brachial; VENT MODE, BG BIPAP 25/5 R20 100%
--- NOTE | 2022-04-18 12:30 | NUR ---
RN NOTES DR ESTRADA NOTIFED REGARDING ABG RESULTS .
--- NOTE | 2022-04-18 13:45 | NUR ---
RN NOTES PT UNSTABLE TO GO TO CT AT THIS TIME PER MD ORDER .
[2022-04-18 15:27] LABS: ABG BASE EXCESS -9.7 mmol/L; ABG OXYGEN SATURATION 96.3 % (92.0-98.5); ABG PCO2 46.8 mmHg (35.0-45.0); ABG PH 7.199 (7.350-7.450); ABG PO2 93.8 mmHg (75.0-100.0); AaDO2 210.1 mmHg; COHb 0.3 % (0.5-1.5); SITE, ABG Right Brachial; VENT MODE, BG S/T 25/5 50%
--- NOTE | 2022-04-18 18:05 | NUR ---
RN NOTES PT STAYS OFF LEVO , ON BIPAP , O2 SAT WNL, DNR/DNI, LETHARGIC, RESPONDS TO PAINFUL STIMULI, SR UP x3, CALL LIGHT WITHIN EASY REACH, BED LOCKED AND IN LOWEST POSITION, WILL ENDORSE TO FIXED INCOME MANAGER FOR CONTINUITY OF CARE .
--- NOTE | 2022-04-18 18:18 | NUR ---
RN NOTES BELONGINGS TAKEN HOME BY MATT ( LORA) STEP MOTHER .
[2022-04-18] MEDS ORDERED: IV NS 0.9% 1,000 ML IV SCH (19:00)
--- NOTE | 2022-04-18 19:10 | NUR ---
RN OPENING NOTES RECEIVED PATIENT ON BED, A/O 1-2, CONFUSED, RESPONSE TO NAME . ON BIPAP WITH SETTING 25/5, RATE 26, FIO2-50% SATING AT 96%. RESPIRATORY EVEN AND UNLABORED, NO SOB NOTED. AFEBRILE, NO S/S OF DISTRESS NOTED. PATIENT ROB MID LINE, FLUSHED WITH NS, NO S/S OF INFILTRATION NOTED AT SITE. WITH IVF OF NS @ 60ML/HR. NICHOLAS CATHETER DRAINING WITH CLEAR YELLOW URINE OUTPUT VIA GRAVITY. WITH BILATERAL SOFT WRIST RESTRAINT, REASSESSED Q2HRS. ALL SAFETY MEASURE PROVIDED. BED IN LOWEST POSITION, LOCKED. BED ALARM ARMED. CONTINUE TO MONITOR.
[2022-04-18] MEDS: MICAFUNGIN SODIUM 100 MG in IV NS 0.9% 100 ML IV SCH (20:26)
[2022-04-18] MEDS: LACTULOSE UDC 200 G in SODIUM CHLORIDE IRRIG SOLUTION 400 ML IR SCH (21:43)
[2022-04-19] VITALS (44 sets, daily range): BP systolic 93–121; BP diastolic 58–84
[2022-04-19] MEDS: LACTULOSE UDC 200 G in SODIUM CHLORIDE IRRIG SOLUTION 400 ML IR SCH ×2 (00:47→04:19)
[2022-04-19 00:53] LABS: HEMOGLOBIN 7.9 g/dL (11.5-14.8)
[2022-04-19] MEDS: METRONIDAZOLE 500MG/ NS 100ML 500 MG in PREMIX 1 EA IV SCH ×3 (04:26→20:00)
[2022-04-19 04:34] LABS: BASOPHILS % (AUTO) 0.3 % (0.0-2.0); EOSINOPHILS % (AUTO) 1.1 % (0.0-6.0); HEMATOCRIT 24 % (33-45); HEMOGLOBIN 7.9 g/dL (11.5-14.8); LYMPHOCYTES # (AUTO) 0.6 K/uL (0.8-4.8); LYMPHOCYTES % (AUTO) 9.1 % (20.0-44.0); MEAN CORPUSCULAR HGB CONC 33 g/dl (31.0-36.0); MEAN CORPUSCULAR VOLUME 98 fL (82-100); MONOCYTES # (AUTO) 0.5 K/uL (0.1-1.30); MONOCYTES % (AUTO) 7.3 % (2.0-12.0); NEUTROPHILS # (AUTO) 5.8 K/uL (1.8-8.9); NEUTROPHILS % (AUTO) 82.2 % (43.0-81.0); PLATELET COUNT (AUTO) 90 K/uL (150-450); RED BLOOD CELL COUNT(AUTO) 2.45 MIL/uL (4.0-5.2)
[2022-04-19 04:40] LABS: CALCIUM, SERUM 8.1 mg/dL (8.5-10.1); CREATININE 1.4 mg/dL (0.6-1.3); POTASSIUM 3.9 mmol/L (3.5-5.1)
[2022-04-19 04:47] LABS: ALBUMIN 3.6 g/dL (3.4-5.0); BILIRUBIN,TOTAL 2.2 mg/dL (0.2-1.0)
[2022-04-19] MEDS: ALBUMIN 25% 25 GM in PREMIX 1 EA IV SCH (04:50)
[2022-04-19 04:53] LABS: D-DIMER 4.25 mg/L(FEU (0.17-0.50)
--- NOTE | 2022-04-19 07:00 | NUR ---
RN NOTES RECEIVED PT ON BED ,LETHARGIC, OPENS EYES TO PAINFUL STIMULI, NONVERBAL ,ON BIPAP , O2 SAT WNL, ON TELE SR HR IN 80'S , NICHOLAS DRAINING TO GRAVITY WITH SMALL AMOUNT OF URINE OUTPUT , PT IS NPO, IV SITES , CLEAN, DRY AND INTACT, NS AT 60CC/HR RUNNING , SR UP x3, CALL LIGHT WITHIN EASY REACH, BED LOCKED AND IN LOWEST POSITION, CONTINUE TO MONITOR .
--- NOTE | 2022-04-19 07:06 | NUR ---
RN NOTES PATIENT SLEEPING ON BED, EASY TO AROUSE , NO SIGNIFICANT CHANGES, REMAIN STABLE. RESPIRATORY EVEN AND UNLABORED, NO SOB NOTED. AFEBRILE, NO S/S OF DISTRESS NOTED. WITH IVF OF NS @ 60ML/HR. NICHOLAS CATHETER DRAINING WITH CLEAR YELLOW URINE OUTPUT VIA GRAVITY. WITH BILATERAL SOFT WRIST RESTRAINT, REASSESSED Q2HRS. ALL DUE MEDS GIVEN . ALL SAFETY MEASURE PROVIDED. BED IN LOWEST POSITION, LOCKED. BED ALARM ARMED. REPORT GIVEN TO MORNING SHIFT NURSE FOR CONTINUITY OF CARE..
[2022-04-19] MEDS: LEVOTHYROXINE SODIUM 100 MCG TABLET PO SCH (07:30)
--- NOTE | 2022-04-19 07:31 | NUR ---
WOUND CARE CONSULT: PT PRESENTS WITH DISCOLORATION/DUSKY COLOR TO FEET, ESPECIALLY PLANTAR FEET. DEFER TO PMD. ALL SKIN PROTECTION MEASURES IN PLACE. MD IN AGREEMENT WITH PLAN OF CARE.
[2022-04-19] MEDS: VANCOMYCIN HCL 0.75 GM in IV D5W 250 ML IV SCH (08:00)
[2022-04-19] MEDS: ENSURE ENLIVE 237 ML LIQUID (VANILLA) PO SCH ×2 (08:00→16:01)
[2022-04-19 08:07] LABS: ABG BASE EXCESS -8.3 mmol/L; ABG OXYGEN SATURATION 90.8 % (92.0-98.5); ABG PCO2 52.9 mmHg (35.0-45.0); ABG PH 7.187 (7.350-7.450); ABG PO2 71.4 mmHg (75.0-100.0); AaDO2 225.6 mmHg; COHb 0.3 % (0.5-1.5); MetHb 1.1 % (0.0-1.5); O2Hb 89.5 % (94.0-97.0); SITE, ABG Right Brachial; VENT MODE, BG S/T 25/5 50%
[2022-04-19] MEDS: POTASSIUM CHLORIDE 20 MEQ POWDER PACKET GT SCH (08:19)
[2022-04-19] MEDS: CITALOPRAM HYDROBROMIDE 20 MG TABLET PO SCH (08:20)
[2022-04-19] MEDS: PANTOPRAZOLE 40 MG VIAL IV SCH ×2 (08:20→16:28)
[2022-04-19] MEDS: METOPROLOL SUCCINATE 50 MG TAB.SR.24H PO SCH (08:21)
[2022-04-19] MEDS: MEROPENEM 1 G in IV NS 0.9% 100 ML IV SCH ×2 (08:29→21:05)
[2022-04-19 08:42] LABS: BAND % (MANUAL) 2 % (0.0-5.0); EOSINOPHILS % (MANUAL) 2 % (0-4); LYMPHOCYTES % (MANUAL) 17 % (16-48); MONOCYTES % (MANUAL) 5 % (0-11.0); NEUTROPHILS % (MANUAL) 74 (42-76)
--- NOTE | 2022-04-19 09:27 | NUR ---
RN NOTES PT UNSTABLE TO GO TO CT PER DR ESTRADA ORDER .
[2022-04-19] MEDS ORDERED: FUROSEMIDE 20 MG/2 ML VIAL IV ONE (10:30)
--- NOTE | 2022-04-19 10:30 | NUR ---
RN NOTES O2 SAT IN 70'S , PT IS MORE ALERT, DR ESTRADA NOTIFED, NEW ORDER RECEIVED. CONTINUE TO MONITOR.
--- NOTE | 2022-04-19 10:40 | NUR ---
RT PATIENT WAS DESATURATING. FIO2 INCREASED TO 100% RN AWARE AND AT BEDSIDE. PATIENT IS DNR/DNI. PULSE OX CHANGED. B/S COARSE. PATIENT NON RESPONSIVE TO VERBAL COMMANDS. REMAINS ON BIPAP WITH ORDERED SETTINGS. Addendum: 04/19/22 at 1044 by MYLENE GRAHAM RT Amended: Links added.
--- NOTE | 2022-04-19 10:46 | NUR ---
RN NOTES O2 SAT UP TO 93% AT THIS TIME, CONTINUE TO MONITOR.
--- NOTE | 2022-04-19 10:57 | NUR ---
RN NOTES UPDATED INFORMATION GIVEN TO MATT (LORA ) REGARDING PT CONDITION.
--- NOTE | 2022-04-19 11:06 | NUR ---
RT EPAP INCREASED TO [address] ESTRADA Addendum: 04/19/22 at 1106 by MYLENE GRAHAM RT Amended: Links added.
[2022-04-19] MEDS ORDERED: PHYTONADIONE INJ 10 MG/1 ML AMPUL SQ SCH (15:30)
--- NOTE | 2022-04-19 15:49 | NUR ---
RT PATIENT REMAINS IN CRITICAL CONDITION ON BIPAP WITH ORDERED SETTINGS. PATIENT WILL REMAIN ON BIPAP. PATIENT IS DNR/DNI NON RESPONSIVE TO VERBAL COMMANDS Addendum: 04/19/22 at 1551 by MYLENE GRAHAM RT Amended: Links added.
[2022-04-19] MEDS ORDERED: VANCOMYCIN 1 GM in IV D5W 250 ML IV SCH (18:00)
--- NOTE | 2022-04-19 18:00 | NUR ---
RN NOTES PT REMAINS ON BIPAP, DNR/DNI , DOES NOT FOLLOW COMMAND, ON TELE HR IN 70'S , LOOSE STOOL x1 NOTED ON THIS SHIFT, SR UP x3, CALL LIGHT WITHIN EASY REACH, BED LOCKED AND IN LOWEST POSITION, WILL ENDORSE TO REMOTE RECRUITER NURSE FOR CONTINTIY OF CARE .
[2022-04-19] MEDS: MICAFUNGIN SODIUM 100 MG in IV NS 0.9% 100 ML IV SCH (18:33)
--- NOTE | 2022-04-19 20:17 | NUR ---
ICU/RN: MATT PAULINO CALLED GAVE UPDATE ON PT.
[2022-04-20] VITALS (37 sets, daily range): BP systolic 82–119; BP diastolic 49–71
[2022-04-20 00:46] LABS: HEMOGLOBIN 8.8 g/dL (11.5-14.8)
[2022-04-20 04:13] LABS: CALCIUM, SERUM 8.3 mg/dL (8.5-10.1); CREATININE 1.8 mg/dL (0.6-1.3); POTASSIUM 3.9 mmol/L (3.5-5.1)
[2022-04-20 04:15] LABS: BASOPHILS % (AUTO) 0.2 % (0.0-2.0); HEMATOCRIT 26 % (33-45); HEMOGLOBIN 8.5 g/dL (11.5-14.8); LYMPHOCYTES # (AUTO) 0.8 K/uL (0.8-4.8); LYMPHOCYTES % (AUTO) 12.7 % (20.0-44.0); MEAN CORPUSCULAR HGB CONC 33 g/dl (31.0-36.0); MEAN CORPUSCULAR VOLUME 99 fL (82-100); MONOCYTES # (AUTO) 0.4 K/uL (0.1-1.30); MONOCYTES % (AUTO) 6.9 % (2.0-12.0); NEUTROPHILS % (AUTO) 78.2 % (43.0-81.0); PLATELET COUNT (AUTO) 73 K/uL (150-450); RED BLOOD CELL COUNT(AUTO) 2.63 MIL/uL (4.0-5.2); WHITE BLOOD COUNT (AUTO) 6.4 K/uL (4.3-11.0)
[2022-04-20 04:19] LABS: ALBUMIN 3.1 g/dL (3.4-5.0); BILIRUBIN,TOTAL 2.1 mg/dL (0.2-1.0); TOTAL PROTEIN, SERUM 5.8 g/dL (6.4-8.2)
[2022-04-20 04:24] LABS: MAGNESIUM 1.6 mg/dL (1.8-2.4); PHOSPHORUS 3.3 mg/dL (2.5-4.9)
[2022-04-20 04:26] LABS: ALBUMIN 3.1 g/dL (3.4-5.0); BILIRUBIN,DIRECT 1.4 mg/dL (0.0-0.2); BILIRUBIN,TOTAL 2.1 mg/dL (0.2-1.0); TOTAL PROTEIN, SERUM 5.8 g/dL (6.4-8.2)
[2022-04-20] MEDS: METRONIDAZOLE 500MG/ NS 100ML 500 MG in PREMIX 1 EA IV SCH ×3 (04:57→20:00)
[2022-04-20 05:01] LABS: D-DIMER 6.86 mg/L(FEU (0.17-0.50)
[2022-04-20 05:22] LABS: BAND % (MANUAL) 2 % (0.0-5.0)
[2022-04-20 05:23] LABS: LYMPHOCYTES % (MANUAL) 16 % (16-48); MONOCYTES % (MANUAL) 4 % (0-11.0)
[2022-04-20 05:24] LABS: NEUTROPHILS % (MANUAL) 78 (42-76)
[2022-04-20] MEDS: LEVOTHYROXINE SODIUM 100 MCG TABLET PO SCH (07:15)
[2022-04-20] MEDS: ENSURE ENLIVE 237 ML LIQUID (VANILLA) PO SCH ×2 (07:16→16:38)
--- NOTE | 2022-04-20 07:30 | NUR ---
RN OPENING NOTES PT IS A/O X 1, PT IS ON ORDERED BIPAP SETTINGS SATING AT 98%. TELE ERIK. READS ST AT 107. PT IS NPO EXCEPT MEDS. IV ACCESS NOTED ON ROB MIDLINE WITH TKO RUNNING. ALL SAFETY MEASURES IN PLACE, WILL CONT TO MONITOR THROUGHOUT SHIFT.
[2022-04-20] MEDS: POTASSIUM CHLORIDE 20 MEQ POWDER PACKET GT SCH (08:02)
[2022-04-20] MEDS: CITALOPRAM HYDROBROMIDE 20 MG TABLET PO SCH (08:03)
[2022-04-20] MEDS: METOPROLOL SUCCINATE 50 MG TAB.SR.24H PO SCH (08:03)
[2022-04-20] MEDS: PANTOPRAZOLE 40 MG VIAL IV SCH ×2 (08:03→16:38)
[2022-04-20] MEDS: MEROPENEM 1 G in IV NS 0.9% 100 ML IV SCH (08:04)
--- NOTE | 2022-04-20 08:46 | NUR ---
CT ABD CHEST HELD FOR TODAY UNTIL PT MORE MEDICALLY STABLE. WILL ASSESS TOMORROW IF PT STABLE ENOUGH FOR CT ABD CHEST.
[2022-04-20] MEDS ORDERED: IV D5/ 0.9% NACL 1,000 ML IV PRN (09:30)
[2022-04-20] MEDS ORDERED: Magnesium 1GM/D5W 100ML PREMIX 100 ML IV SCH (10:30)
[2022-04-20] MEDS: ACETYLCYSTEINE 10% SOLN 400 MG/4 ML VIAL NEB SCH ×3 (11:24→23:44)
--- NOTE | 2022-04-20 11:29 | NUR ---
SS Note: SW communicated with RELAY MECHANIC, Isabella Acosta, regarding possible family meeting for comfort care. Isabella stated she will call family this afternoon to discuss. ANTONIA provided patient's stepmother & POA number Leanne Quinonez [phone].
--- NOTE | 2022-04-20 12:56 | NUR ---
Changing NPO except meds order to strictly NPO due to LOC of pt. Awaiting confirmation from family about possible comfort measures.
[2022-04-20 14:32] LABS: ABG BASE EXCESS -6.6 mmol/L; ABG OXYGEN SATURATION 98.7 % (92.0-98.5); ABG PCO2 31.2 mmHg (35.0-45.0); ABG PH 7.374 (7.350-7.450); ABG PO2 150.2 mmHg (75.0-100.0); AaDO2 531.6 mmHg; COHb 0.3 % (0.5-1.5); MetHb 1.3 % (0.0-1.5); O2Hb 97.1 % (94.0-97.0); SITE, ABG Right Radial
[2022-04-20 16:46] LABS: HEMOGLOBIN 8.3 g/dL (11.5-14.8)
[2022-04-20] MEDS ORDERED: CEFTRIAXONE 2 G in IV D5W 100 ML IV SCH (18:00)
[2022-04-20] MEDS: NOREPINEPHRINE 32 MG in IV NS 0.9% 218 ML IV PRN (20:01)
[2022-04-21] VITALS (31 sets, daily range): BP systolic 80–112; BP diastolic 50–66
[2022-04-21 00:47] LABS: HEMOGLOBIN 9.7 g/dL (11.5-14.8)
[2022-04-21 04:13] LABS: BASOPHILS # (AUTO) 0.1 K/uL (0.0-0.2); BASOPHILS % (AUTO) 0.8 % (0.0-2.0); EOSINOPHILS % (AUTO) 0.9 % (0.0-6.0); HEMATOCRIT 30 % (33-45); HEMOGLOBIN 9.4 g/dL (11.5-14.8); LYMPHOCYTES # (AUTO) 1.1 K/uL (0.8-4.8); LYMPHOCYTES % (AUTO) 11.3 % (20.0-44.0); MEAN CORPUSCULAR HGB CONC 31 g/dl (31.0-36.0); MEAN CORPUSCULAR VOLUME 103 fL (82-100); MONOCYTES # (AUTO) 0.4 K/uL (0.1-1.30); MONOCYTES % (AUTO) 3.8 % (2.0-12.0); NEUTROPHILS % (AUTO) 83.2 % (43.0-81.0); PLATELET COUNT (AUTO) 96 K/uL (150-450); RED BLOOD CELL COUNT(AUTO) 2.93 MIL/uL (4.0-5.2); WHITE BLOOD COUNT (AUTO) 9.7 K/uL (4.3-11.0)
[2022-04-21 04:26] LABS: D-DIMER 9.43 mg/L(FEU (0.17-0.50)
[2022-04-21 04:40] LABS: ALBUMIN 3.1 g/dL (3.4-5.0); BILIRUBIN,TOTAL 2.2 mg/dL (0.2-1.0); CALCIUM, SERUM 8.2 mg/dL (8.5-10.1); CREATININE 2.4 mg/dL (0.6-1.3); MAGNESIUM 1.7 mg/dL (1.8-2.4); PHOSPHORUS 5.5 mg/dL (2.5-4.9); POTASSIUM 4.6 mmol/L (3.5-5.1); TOTAL PROTEIN, SERUM 6.6 g/dL (6.4-8.2)
[2022-04-21 04:41] LABS: BAND % (MANUAL) 8 % (0.0-5.0); BASOPHILS % (MANUAL) 0 % (0.0-2.0); EOSINOPHILS % (MANUAL) 0 % (0-4); LYMPHOCYTES % (MANUAL) 7 % (16-48); MONOCYTES % (MANUAL) 4 % (0-11.0); NEUTROPHILS % (MANUAL) 80 (42-76)
[2022-04-21] MEDS: METRONIDAZOLE 500MG/ NS 100ML 500 MG in PREMIX 1 EA IV SCH (05:25)
--- NOTE | 2022-04-21 07:05 | NUR ---
Bedside report taken from [facility] nurse Stiven BAUTISTA. pt unresponsive, pt does not open eyes or move bue or ble to painful stimuli. pt on bipap fio2 100%. angelito lung sounds diminished. Pt npo at this time, no exceptions. pt has hypoactive bowel sounds. pt has shearer intact, pt anuric. pt has masd in ronan area. pt has steve midline. pt on levophed. all lines traced. all drips verified. safety measures in place. will continue to monitor.
[2022-04-21] MEDS: LEVOTHYROXINE SODIUM 100 MCG TABLET PO SCH (07:30)
[2022-04-21] MEDS: ACETYLCYSTEINE 10% SOLN 400 MG/4 ML VIAL NEB SCH (07:36)
[2022-04-21] MEDS: ENSURE ENLIVE 237 ML LIQUID (VANILLA) PO SCH (07:46)
--- NOTE | 2022-04-21 07:53 | NUR ---
CLASSROOM TECHNOLOGY COACH 0750- Pt rapidly desaturating spo2 50s and dropping on bipap 100%. Jose RT at bedside. Charge nurse Ting RN at bedside. suggested to use ambu bag on pt, pt not to be bagged at this time per charge nurse d/t pt DNR, DNI status. 0751- Pt hr bradycardia and has dropped from 90s to 50s. 0753- Charge nurse Ting RN called pt next of kin Leanne [phone] to inform her that pt deteriorating and is actively dying on the bipap. per Leanne, allow natural , ok to remove pt off bipap. 0754- Dr Alcala at bedside aware that pt actively dying. no other orders at this time
--- NOTE | 2022-04-21 08:10 | NUR ---
GROUP FITNESS MANAGER Charge nurse Tign RN at bedside declaring pt. pt pulseless, flat line on monitor, no chest rise present. pt declared time of 0810am. pt step mother Leanne notified. Leanne to come to hospital shortly.
--- NOTE | 2022-04-21 08:15 | NUR ---
DIGITAL MUSIC INSTRUCTOR [employer] called spoke to instruments sales representative Emmanuelle. Pt not a candidate for donation and body can be released to family. Reference # [id number]
--- NOTE | 2022-04-21 08:20 | NUR ---
FARMWORKER LIVESTOCK Charge nurse Ting spoke to Leanne informed of pt passing and answered questions. mother to be in to see body shortly.
--- NOTE | 2022-04-21 08:25 | NUR ---
SUPERINTENDENT WATER AND SEWER SYSTEMS Record of /Authorization for release of remains form completed and reviewed with Charge nurse Ting BAUTISTA.
[2022-04-21] MEDS ORDERED: LACTULOSE 10 G/15 ML UDC (PYXIS) PO SCH (09:00)
--- NOTE | 2022-04-21 09:20 | NUR ---
SHIP MATE Pt step mother and other family members at bedside. release of remains signed by Leanne.
--- NOTE | 2022-04-21 09:50 | NUR ---
RECEIVING MANAGER Pt remains taken to morgue with security. pt has no belongings at bedside. pt chart taken to nursing office by community services manager.
[2022-04-21] MEDS ORDERED: Magnesium 1GM/D5W 100ML PREMIX 100 ML IV SCH (10:00)
== END 2022-04-21 10:02 | DRG 814 ==
LOC: ER 11:35 → TELE-TD 16:12 → TELE1 04-08 16:49 → TELE-TD 04-08 21:46 → TELE1 04-09 08:44 → MEDSG1 04-15 14:58 → ICU 04-15 20:44
PROVIDERS: ADMIT Nurse Practitioner Acute Care; ATTEND Registered Nurse
PROC: 05H933Z Insertion of Infusion Device into Right Brachial Vein, Percutaneous Approach (ICD-10-PCS; principal; 2022-04-05)
PROC: 30233N1 Transfusion of Nonautologous Red Blood Cells into Peripheral Vein, Percutaneous Approach (ICD-10-PCS; 2022-04-05)
PROC: 05H933Z Insertion of Infusion Device into Right Brachial Vein, Percutaneous Approach (ICD-10-PCS; 2022-04-16)
PROC: 5A09457 Assistance with Respiratory Ventilation, 24-96 Consecutive Hours, Continuous Positive Airway Pressure (ICD-10-PCS; 2022-04-18)
DX: D75.89 Other specified diseases of blood and blood-forming organs (principal); A41.9 Sepsis, unspecified organism; E43 Unspecified severe protein-calorie malnutrition; J96.01 Acute respiratory failure with hypoxia; K85.90 Acute pancreatitis without necrosis or infection, unspecified; N17.0 Acute kidney failure with tubular necrosis; D61.818 Other pancytopenia; N39.0 Urinary tract infection, site not specified; G93.40 Encephalopathy, unspecified; A04.72 Enterocolitis due to Clostridium difficile, not specified as recurrent; E87.1 Hypo-osmolality and hyponatremia; J90 Pleural effusion, not elsewhere classified; E72.20 Disorder of urea cycle metabolism, unspecified; J98.11 Atelectasis; E87.2 Acidosis; E86.0 Dehydration; Z20.822 Contact with and (suspected) exposure to COVID-19; I10 Essential (primary) hypertension; Z98.61 Coronary angioplasty status; Z98.82 Breast implant status; Z66 Do not resuscitate; Z51.5 Encounter for palliative care; Z98.890 Other specified postprocedural states; Z79.890 Hormone replacement therapy; Z79.899 Other long term (current) drug therapy; F41.9 Anxiety disorder, unspecified; F32.A Depression, unspecified; K70.31 Alcoholic cirrhosis of liver with ascites; I25.10 Atherosclerotic heart disease of native coronary artery without angina pectoris; E87.6 Hypokalemia; E78.5 Hyperlipidemia, unspecified; F10.10 Alcohol abuse, uncomplicated; F17.210 Nicotine dependence, cigarettes, uncomplicated; K21.9 Gastro-esophageal reflux disease without esophagitis; E88.09 Other disorders of plasma-protein metabolism, not elsewhere classified; K76.0 Fatty (change of) liver, not elsewhere classified; E03.9 Hypothyroidism, unspecified; D69.59 Other secondary thrombocytopenia; D53.9 Nutritional anemia, unspecified; E83.42 Hypomagnesemia; E86.1 Hypovolemia; D68.9 Coagulation defect, unspecified; B96.20 Unspecified Escherichia coli [E. coli] as the cause of diseases classified elsewhere; S10.92XA Blister (nonthermal) of unspecified part of neck, initial encounter; S40.222A Blister (nonthermal) of left shoulder, initial encounter; X58.XXXA Exposure to other specified factors, initial encounter; Y92.9 Unspecified place or not applicable; K70.11 Alcoholic hepatitis with ascites; Y90.0 Blood alcohol level of less than 20 mg/100 ml; D63.8 Anemia in other chronic diseases classified elsewhere; T17.990A Other foreign object in respiratory tract, part unspecified in causing asphyxiation, initial encounter; Y92.89 Other specified places as the place of occurrence of the external cause
CPT/HCPCS: 36410; 36415; 36600; 70450-TC; 71045-TC; 76705-TC; 76770-TC; 80048-TC; 80053-TC; 80076-TC; 80202-TC; 81001; 82140-TC; 82150-TC; 82272-TC; 82378; 82570-TC; 82607-TC; 82728-TC; 82784; 82803-TC; 82962-TC; 83540-TC; 83605-TC; 83690-TC; 83735-TC; 84100-TC; 84155; 84165; 84300-TC; 84439-TC; 84443-TC; 85025-TC; 85027-TC; 85385-TC; 85396; 85610-TC; 85730-TC; 86140-TC; 86225; 86235; 86334; 86431-TC; 86706; 86803; 86850-TC; 87040-TC; 87045-TC; 87081-TC; 87086-TC; 87186-TC; 87340; 94760-TC; 94762-TC; 94799-TC; 97110-TC; 97112-TC; 97530-TC; A4216; A4217; A6403; A9563; C9113; C9803; G0378; G0480; J0696; J1200; J1940; J2185; J2248; J2354; J2543; J3370; J3430; J3475; J3480; J3490; J7030; J7040; J7042; J7050; J7060; P9016; P9047